=== PATIENT | male | born 1950 | race Caucasian/White ===

== ENCOUNTER → 2023-10-10 09:27 | Outpatient (REF) | payer MEDICARE, BC, SELFPAY ==
[2023-10-10 11:52] LABS: % Basophils 0.5 % (0-2); % Eosinophils 0.9 % (0-6); % Immature Granulocytes 0.2 % (0-0.5); % Lymphocytes 20.8 % (20.5-51.1); % Monocytes 6.6 % (1.7-9.3); Absolute Eosinophils 0.1 10^3/uL (0-0.7); Absolute Lymphocytes 1.7 10^3/uL (1.2-3.4); Absolute Monocytes 0.5 10^3/uL (0.1-0.6); Absolute Neutrophils 5.7 10^3/uL (1.4-6.5); Hematocrit 40.3 % (39.0-52.0); Hemoglobin 13.4 g/dL (13.0-18.0); Mean Corp Hgb Conc. 33.3 g/dL (33.0-37.0); Mean Corpuscular Hgb 29.5 pg (27.0-31.0); Mean Corpuscular Volume 88.8 fL (80.0-94.0); Mean Platelet Volume 12.4 fL (7.4-10.4); Nucleated Red Blood Cells % 0 % (-); Platelet Count 185 10^3/uL (130-400); Red Blood Cell Count 4.54 10^6/uL (4.70-6.10); White Blood Cell Count 8.1 10^3/uL (4.8-10.8)
[2023-10-10 12:18] LABS: ALT (SGPT) 22 U/L (0-50); AST (SGOT) 23 U/L (17-59); Alkaline Phosphatase 88 U/L (38-126); Blood Urea Nitrogen 13 mg/dl (9-20); Calcium 9.4 mg/dl (8.4-10.2); Carbon Dioxide 28 mmol/L (22-30); Chloride 101 mmol/L (98-107); Glucose 96 mg/dl (70-99); HDL Cholesterol 36 mg/dl; LDL Cholesterol, Calculated 65 mg/dl; Potassium 4.4 mmol/L (3.5-5.1); Sodium 137 mmol/L (135-145); Total Bilirubin 0.5 mg/dl (0.2-1.3); Total Cholesterol 124 mg/dl (50-199); Total Protein 6.8 g/dl (6.3-8.2); Triglyceride 116 mg/dl (10-149); Very Low Density Lipoprotein 23 mg/dl (0-30); eGFR > 60.00
[2023-10-10 12:36] LABS: TSH 1.09 uIU/ml (0.47-4.68)
== END ==
LOC: HWLAB 09:27
PROVIDERS: ATTENDING PHYSICIAN Internal Medicine
DX: E78.2 Mixed hyperlipidemia (principal); I10 Essential (primary) hypertension; R19.5 Other fecal abnormalities; N32.81 Overactive bladder; R53.82 Chronic fatigue, unspecified
CPT/HCPCS: 36415; 80053; 80061; 84443; 85025

== ENCOUNTER 2024-03-24 21:14 | Inpatient (IN) | payer MEDICARE, BC, SELFPAY ==
[2024-03-24] VITALS (10 sets, daily range): BP systolic 133–175; BP diastolic 66–79; BMI 26.8; BMI 26.6
--- NOTE | 2024-03-24 17:41 | ED.PDOC.TRB ---
ED Provider Triage
-
Patient seen by provider in Triage?: Seen in Triage
A medical screening examination has been initiated by a qualified medical provider. Based on the assessment performed at this time, it has been determined that an emergent medical condition may exist and the patient has been informed that further
medical evaluation and possible additional diagnostic testing may be needed.
HPI: This is a medical evaluation conducted in person to initiate diagnostic evaluation and provide initial therapeutics. Please see further documentation by the treating clinician.
GENERAL: Alert ,tearful
EYE: No visual abnormalities.
NECK: Trachea midline
ENT: No visible abnormalities.
LUNGS: No acute respiratory distress
NEUROLOGICAL: Alert and oriented
SKIN: no visible lesions.
MUSCULOSKELETAL: Moving extremities normally
PSYCH: Normal and appropriate interaction.
73-year-old male presenting to the emergency department today after an outpatient nuclear stress test that was abnormal centimeter lesion to the ER for further assessment. Did have some chest pain a few hours ago when he had this test performed.
According to the patient his primary care doctor that ordered the test did contact cardiology here but he is unsure which doctor. No ongoing symptoms at this point. Patient took full dose of aspirin prior to arrival. Initial ER testing ordered.
[2024-03-24 18:14] LABS: INR 1.06; PT 13.8 Sec (11.4-14.6)
[2024-03-24 18:15] LABS: APTT 32.6 Sec (23.4-35.0)
[2024-03-24 18:24] LABS: ALT (SGPT) 24 U/L (0-50); AST (SGOT) 28 U/L (17-59); Albumin 4.6 g/dl (3.5-5.0); Alkaline Phosphatase 106 U/L (38-126); Blood Urea Nitrogen 18 mg/dl (9-20); Calcium 9.5 mg/dl (8.4-10.2); Carbon Dioxide 25 mmol/L (22-30); Chloride 105 mmol/L (98-107); Estimated Creatinine Clearance 67 ml/min; Glucose 99 mg/dl (70-99); Potassium 4.6 mmol/L (3.5-5.1); Sodium 143 mmol/L (135-145); Total Bilirubin 0.6 mg/dl (0.2-1.3); Total Protein 7.5 g/dl (6.3-8.2); eGFR > 60.00
[2024-03-24 18:31] LABS: Troponin I 0.263 ng/ml
[2024-03-24 18:35] LABS: Hematocrit 41.8 % (39.0-52.0); Hemoglobin 14.4 g/dL (13.0-18.0); Mean Corp Hgb Conc. 34.4 g/dL (33.0-37.0); Mean Corpuscular Volume 87.1 fL (80.0-94.0); Mean Platelet Volume 12.3 fL (7.4-10.4); Platelet Count 193 10^3/uL (130-400); Red Cell Dist. Width 13.3 % (11.5-14.5); White Blood Cell Count 16.6 10^3/uL (4.8-10.8)
[2024-03-24 18:36] LABS: % Basophils 0.4 % (0-2); % Eosinophils 0.2 % (0-6); % Immature Granulocytes 0.4 % (0-0.5); % Lymphocytes 7.4 % (20.5-51.1); % Monocytes 4.3 % (1.7-9.3); % Neutrophils 87.3 % (42.2-75.2); Absolute Basophils 0.1 10^3/uL (0-0.2); Absolute Immature Granulocytes 0.1 10^3/uL (0-0.05); Absolute Lymphocytes 1.2 10^3/uL (1.2-3.4); Absolute Monocytes 0.7 10^3/uL (0.1-0.6); Absolute Neutrophils 14.5 10^3/uL (1.4-6.5); Nucleated Red Blood Cells % 0 % (-)
[2024-03-24] MEDS: LOW STRENGTH ASPIRIN 324 MG PO (19:08)
--- NOTE | 2024-03-24 19:38 | ED.GENMED ---
History of Present Illness
General
Chief Complaint: Chest Pain
Source: patient and spouse
Exam Limitations: none
Time Seen by Provider: 03/24/24 18:43
Nursing documentation reviewed up to this point in time: agreed with
History of Present Illness
History of Present Illness:
73-year-old male with a past medical history of hypertension, hyperlipidemia who presents to the emergency room with his family for evaluation of recent chest pains and abnormal stress test as an outpatient today. Patient reports that while doing
yard work over the past few months he has noted occasional chest pains�they typically last for a minute or 2 and resolved with some rest. He disclosed this to his family and ultimately to his primary doctor and was referred to a film tests checker for
evaluation. He saw Dr. Jorge Purvis and today was scheduled for nuclear stress test. Apparently a few minutes after initiation of the test patient became diaphoretic and started having chest discomfort. He was referred to the emergency
room�apparently his film tests checker discussed with Dr. Treviño. Patient is currently chest pain-free says that he feels well and has no symptoms here in the ER. He denies any known cardiac history. He does not take any blood thinners.
Review of Systems
Review of Systems
All Other Systems: ROS reviewed and negative except as documented in HPI and ROS
Constitutional: Denies fever
Respiratory: Denies trouble breathing
Cardiac: Reports chest pain and diaphoresis
ABD/GI: Denies abdominal pain, nausea or vomiting
: Denies flank pain
Musculoskeletal: Denies neck pain or back pain
Neurological: Denies dizzy or headache
Phy Exam
Physical Exam
Physical Exam:
General: Awake, alert, oriented x3; no acute distress
Head: Normocephalic, atraumatic
Eyes: Conjunctiva normal, pupils equal round and reactive to light bilaterally
Throat: Airway intact, handling secretions
Neck: Trachea midline, supple without meningismus
Lungs: Clear to auscultation bilaterally, no wheezing, rales, rhonchi
Heart: Regular rate and rhythm, no murmurs, gallops, or rubs
Abd: Soft, non distended, nontender
Neuro: Cranial nerves grossly intact, speech fluid
Skin: no rash
Extremities: No edema in extremities, equal pulses in all extremities
Scores
Heart Failure Risk
Heart Failure Risk Score: Not Applicable
Heart Score for Chest Pain Patients
STEMI patient?: No
History: Highly Suspicious
ECG: Significant ST-Depression
Age: >/= 65 years
Risk Factors: 1 or 2 Risk Factors
Troponin: >/= 3 x Normal Limit
Heart Score for Chest Pain Patients: 9
Heart Score Risk: 72.7 % MACE over next 6 weeks
Withdrawal Assessment of Alcohol
Withdrawal Assessment Completed?: Not applicable
Course
Orders/Labs/Results
Orders:
Orders
03/24/24 17:40
Electrocardiogram (*1) Stat
Reason for Study: Other
Other Reason for Exam: chest pain
EKG- Treatment ONCE
CR Chest - 2 Views Urgent
Comment:
Reason For Exam: cp
03/24/24 17:52
Complete Blood Count/With Diff Urgent
Comprehensive Metabolic Panel Urgent
PTT Urgent
Prothrombin Time Urgent
Troponin I Urgent
03/24/24 18:47
EKG [Electrocardiogram (*1)] Urgent
Reason for Study: Chest Pain
03/24/24 18:48
EKG- Treatment ONCE
03/24/24 18:57
Aspirin Chewable [Low Strength Aspirin] 324 mg PO NOW STA
03/24/24 19:13
CARDIOLOGY CONSULT Urgent
Consulting Provider: Jaylyn Moncada
Was physician already notified: Yes
Heparin 4,000 units IV NOW STA
Nursing to Place Non Medication Order As Directed
Physician Order: PTT 6 hours after initial start of Heparin infusion
03/24/24 19:15
Heparin 83406 Units/250 ml 25,000 units in 250 ml IV PER PROTOCOL
Weight to be used for heparin protocol in kilograms (kg):: 77.6
Protocol:: Cardiac Tx/Acute Coronary
PTT Goal Range to be used:: PTT 73 to 111 seconds
Order type:: Initial
INITIAL Infusion Dose (UNITS/KG/hr) & then follow protocol:: 12 units/kg/hr
Infusion Dose in UNITS/hr & then follow protocol (UNITS/hr):: 950
INFUSION RATE in mL/hr & then follow protocol (mL/hr):: 9.5
PTT less than or equal to 64 seconds:: Increase rate by 200 units/hr (+ 2 mL/hr)
PTT 64.1 to 72.9 seconds:: Increase rate by 100 units/hr (+ 1 mL/hr)
PTT 73 to 111 seconds:: Target Range. No change in rate.
PTT 111.1 to 130.9 seconds:: Decrease rate by 100 units/hr (- 1 mL/hr)
PTT 131 to 199.9 seconds:: HOLD for 1 hr. Then decrease rate by 200 units/hr (- 2 mL/hr)
PTT greater than or equal to 200 seconds:: HOLD for 2 hrs & Notify Provider. Then decrease by 200 units/hr (-
2 mL/hr)
Lab follow-up:: Each change, PTT q6h until 2 consecutive are therapeutic. Then PTT
daily.
03/24/24 21:00
Troponin I Urgent
Abnormal Lab Results
03/24/24
17:52
WBC 16.6 H 10^3/uL
(4.8-10.8)
MPV 12.3 H fL
(7.4-10.4)
Abs Immat Gran (auto) 0.1 H 10^3/uL
(0-0.05)
Absolute Neuts (auto) 14.5 H 10^3/uL
(1.4-6.5)
Absolute Monos (auto) 0.7 H 10^3/uL
(0.1-0.6)
Neutrophils % 87.3 H %
(42.2-75.2)
Lymphocytes % 7.4 L %
(20.5-51.1)
Troponin I 0.263 H* ng/ml
03/24/24 17:52
03/24/24 17:52
Vital Signs
Initial and Last Documented VS:
Initial Vital Signs
Temp Pulse Resp BP Pulse Ox
37.1 C 75 18 175/75 98
03/24/24 17:34 03/24/24 17:34 03/24/24 17:34 03/24/24 17:34 03/24/24 17:34
Last Documented Vital Signs
Temp Pulse Resp BP Pulse Ox
36.9 C 71 18 143/66 99
03/24/24 18:00 03/24/24 19:05 03/24/24 19:05 03/24/24 19:05 03/24/24 19:05
MDM/Problems Addressed
Differential Diagnosis Includes:
ACS/angina
MDM/Problems Addressed:
73-year-old male presents to the emergency department referred by his film tests checker after an abnormal stress test. Has been having intermittent chest pains for the past few months, currently chest pain-free and asymptomatic. Hypertensive in triage
normalized by my assessment, rest of vitals normal. His EKG is abnormal with anterolateral ST depressions. Will place an IV send labs including CBC and CMP, troponins. Treat with aspirin. Discuss with cardiology.
CBC shows leukocytosis of unclear clinical significance, CMP no clinically significant abnormalities. His initial troponin is elevated at 0.263�will trend. Given aspirin, discussed with cardiology recommended heparin infusion. Will plan for cath
in a.m., n.p.o. at midnight. Case discussed with hospitalist for admission.
Chronic conditions affecting care:
Hypertension, hyperlipidemia-- at higher risk for CAD
*Radiology
Radiology exam reviewed: preliminary read by ED provider (No acute disease) and radiology read reviewed
*Pulse Oximetry
Patient hypoxic: no
*EKG
Interpreted by ED Provider?: Yes
Heart Rate: 73
Rate: normal
Rhythm: sinus
Arona: normal axis
Interval: normal interval
QRS Pattern: normal QRS
Ischemia: ST depression
*Critical Care Note
Total Time (30-74mins, 75-104mins- exclusive of procedures): Not Applicable
Data Reviewed
Source: patient and family
Patient Management
Discussion with other providers: Hospitalist (Discussed with hospitalist) and Gas Regulator Repairer (Discussed with cardiology)
Escalation/DeEscalation of care consider admission/obs:
Admission indicated
ED Attending Note
-
Portions of this chart may have been created with voice recognition software.� Occasional wrong word or��sound alike� substitutions may have occurred due to the inherent limitations of voice recognition software.
Discharge Plan
Departure
Patient Disposition: Admit
Date of Disposition: 03/24/24
Time of Disposition: 19:47
Admit to doctor: Kar
Presentation/result/management discussed w/ accepting MD/DO: Hospitalist
Discharge Problem:
Non-ST elevation WI (NSTEMI)
Prescriptions:
No Action
atorvastatin 20 mg Tablet
20 mg PO HS
amlodipine 5 mg Tablet
5 mg PO DAILY
losartan 100 mg Tablet
100 mg PO DAILY
Theragen Tablet
1 tab PO DAILY
ascorbic acid (vitamin C) [Vitamin C] 500 mg Tablet
500 mg PO DAILY
Referrals:
UNKNOWN - PT DOES,NOT KNOW [Family Provider] -
Interventions
Interventions:
*Risk Screen - Suicide Last Done: 03/24/24 17:34
*Neglect/Abuse Screening Last Done: 03/24/24 17:34
*ED COVID-19 Vaccine History Last Done: 03/24/24 17:34
ED- Cardiac Assessment Last Done: 03/24/24 18:55
Discharge Date and Time
Print Language: KINYARWANDA
[2024-03-24] MEDS: HEPARIN 4000 UNITS IV (19:46)
[2024-03-24] MEDS: HEPARIN 25000 UNITS/250 ML IV (19:46)
--- NOTE | 2024-03-24 19:58 | HPS.HSE ---
Addendum entered and electronically signed by Yaya Lakhani DO 03/24/24 20:44:
Patient seen and examined independently. Agree with findings and plan as set forth by DUSTIN Alvarez.
Patient is a 73y M with PMH significant for HTN and dyslipidemia who presents to ED after abnormal stress test today. Patient reports nearly a year of intermittent substernal chest pain that occurs with exertion. Symptoms would typically
resolve quickly with rest. No significant SOB, diaphoresis, N/V, etc. He states that symptoms have not really increased in severity over the past year - perhaps somewhat more frequent. No symptoms with rest.
Patient reported symptoms to his PCP and was sent for stress testing. This was performed today with immediate discomfort / positive stress test.
Cardiology directed the patient to the ED to be admitted for catheterization in the AM.
NSTEMI / ACS
- Admit for further evaluation and treatment.
- IV heparin overnight.
- Bedrest, follow for any recurrent symptoms.
- ASA, increase statin.
- Cardiology eval for cardic cath in the AM.
Benign Hypertension
- Continue current medications for now.
- Will likely require some adjustments for GDMT prior to discharge.
Leukocytosis
- Unclear etiology. ? stress response.
- Afebrile, non-toxic appearing and no focal symptoms suggestive of infection.
- Observe off of abx.
- Follow for changes, development of fever, etc.
DVT Prophylaxis: On IV Heparin
Code Status: Full
Original Note:
Family Physician
-
Family Physician: NOT KNOW UNKNOWN - PT DOES
Chief Complaint
-
chest pain
History of Present Illness
73 year old with PMH for HTN, HLD presented to us with intermittent chest pain for months. patient stated non radiating mid sternum which is worse with exertion, relieved with rest. denied any sob. patient underwent nuclear stress test. he was noted
to have diaphoretic and chest pain. at present denied chest pain. denied KOEHLER, dizzy or syncopal episode. denied fever, chills. denied abdominal pain,n,v,d. denied dysuria or hematuria.
noted elevated trop in ER. initiated on heparin drip. admitting for further management.
Medical History
Past Medical History
Past Medical History: Reports Other
Additional Past Medical History:
HTN
HLD
BPH
Past Surgical History: Reports Other
Additional Past Surgical History:
tonsillectomy
Social History
Tobacco: Non-smoker
Alcohol: Occasional
Drug: None
Family History
Family History: Not pertinent
Allergies / Home Medications
Allergies reflects when Allergies were last updated in [employer].
Home Medications with original date entered in [employer]
Allergy/Medication List:
Allergies
Allergy/AdvReac Type Severity Reaction Status Date / Time
pollen extracts Allergy nasal Verified 03/24/24 19:03
congestion
Home Medications
amlodipine 5 mg tablet 5 mg PO DAILY 03/24/24
ascorbic acid (vitamin C) 500 mg tablet (Vitamin C) 500 mg PO DAILY 03/24/24
atorvastatin 20 mg tablet 20 mg PO HS 03/24/24
losartan 100 mg tablet 100 mg PO DAILY 03/24/24
therapeutic multivitamin 1 tab PO DAILY 03/24/24
Review of Systems
-
Constitutional: Reports No Symptoms
EENT: Reports No Symptoms
Respiratory: Reports No Symptoms
Cardiac: Reports Chest Pain
Abdomen/GI: Reports No Symptoms
: Reports No Symptoms
Musculoskeletal: Reports No Symptoms
Skin: Reports No Symptoms
Neurological: Reports No Symptoms
Endocrine: Reports No Symptoms
Hematologic/Lymphatic: Reports No Symptoms
Psych: Reports No Symptoms
Physical Exam
Vital Signs
Vital Signs
Temp Pulse Resp BP Pulse Ox
98.5 F 71 18 143/66 99
03/24/24 18:00 03/24/24 19:05 03/24/24 19:05 03/24/24 19:05 03/24/24 19:05
Physical Exam
General: Well Developed, Well Nourished and No Apparent Distress
HEENT: NormoCephalic, Moist mucous membranes and Atraumatic
Respiratory: Clear
Cardiac: S1/S2 and Regular Rhythm; No Murmur or Rub
GI: Soft, Non Tender, Non Distended and Normal Bowel Sounds; No Organomegaly
Rectal: Deferred by Provider
Musculoskeletal: No Clubbing, No Cyanosis and No Edema
Skin: No Rash
Neuro: AO x 3 and Nonfocal/grossly intact
Psych: Calm
Laboratory Results
-
03/24/24 17:52
03/24/24 17:52
Laboratory Results
PT 13.8 Sec (11.4-14.6) 03/24/24 17:52
INR 1.06 03/24/24 17:52
APTT Cancelled 03/24/24 19:13
Total Bilirubin 0.6 mg/dl (0.2-1.3) 03/24/24 17:52
AST 28 U/L (17-59) 03/24/24 17:52
ALT 24 U/L (0-50) 03/24/24 17:52
Alkaline Phosphatase 106 U/L (38-126) 03/24/24 17:52
Troponin I 0.263 ng/ml H* 03/24/24 17:52
Data Reviewed
-
Diagnostic Radiology: Report Reviewed by me
Lab Data: Labs Reviewed by me
Impression/Plan
-
#unstable angina/NSTEMI
-TRop 0.263, continue to trend trop
-EKG with ST depression
-for cardiac cath tomorrow
-keep patient NPO after MN
-asa continued
-IV heparin
-cardiology consulted
#leukocytosis likely stress reaction
-wbc 16.6
-patient is afebrile
-obtain UA
#essential htn
-BP stable
-Norvasc,losartan continued with hold parameter
#HLD
-statin continued
#DVT prophylaxis
-heparin
#CODE status
-full code
[2024-03-24] MEDS: LIPITOR 20 MG PO (22:31)
[2024-03-24 22:51] LABS: Urine Albumin Trace (Neg - Trace); Urine Bilirubin Negative (Negative); Urine Character Clear (Clear); Urine Color Yellow; Urine Glucose Negative (Negative); Urine Ketone Trace (Negative); Urine Leukocyte Negative (Negative); Urine Nitrite Negative (Negative); Urine Occult Blood Negative (Negative); Urine Specific Gravity 1.015 (<1.030); Urine Urobilinogen Negative (Neg - 1+)
--- NOTE | 2024-03-24 23:29 | PTCARENOTE ---
Pt admitted to room 2252. AAOx3 VSS, denies CP or any other discomfort. Pt ambulating in the room independently. Pt oriented to room, safety measures in place.
[2024-03-25] VITALS (16 sets, daily range): BP systolic 109–166; BP diastolic 52–81; BMI 26.8
[2024-03-25] MEDS: LIPITOR 60 MG PO (00:15)
[2024-03-25] MEDS: LOPRESSOR 12.5 MG PO ×3 (00:15→21:29)
[2024-03-25 01:45] LABS: APTT 122.8 Sec (23.4-35.0)
[2024-03-25 03:51] LABS: Hematocrit 37.2 % (39.0-52.0); Hemoglobin 12.9 g/dL (13.0-18.0); Mean Corp Hgb Conc. 34.7 g/dL (33.0-37.0); Mean Corpuscular Hgb 29.7 pg (27.0-31.0); Mean Corpuscular Volume 85.5 fL (80.0-94.0); Mean Platelet Volume 12.6 fL (7.4-10.4); Platelet Count 184 10^3/uL (130-400); Red Blood Cell Count 4.35 10^6/uL (4.70-6.10); Red Cell Dist. Width 13.3 % (11.5-14.5); White Blood Cell Count 10.3 10^3/uL (4.8-10.8)
[2024-03-25 04:17] LABS: Blood Urea Nitrogen 17 mg/dl (9-20); Calcium 9.1 mg/dl (8.4-10.2); Carbon Dioxide 25 mmol/L (22-30); Chloride 108 mmol/L (98-107); Estimated Creatinine Clearance 73 ml/min; Glucose 80 mg/dl (70-99); HDL Cholesterol 39 mg/dl; LDL Cholesterol, Calculated 71 mg/dl; Potassium 4.3 mmol/L (3.5-5.1); Sodium 142 mmol/L (135-145); Total Cholesterol 122 mg/dl (50-199); Triglyceride 61 mg/dl (10-149); Very Low Density Lipoprotein 12 mg/dl (0-30); eGFR > 60.00
--- NOTE | 2024-03-25 07:54 | CON.CAR ---
Consultation
Consultation Request
Date/Time Consultation Requested:
Date/Time Consultation Performed: 03/25/24
Requesting Provider: Dr Lakhani
Performing Provider: Dr real (OP Dr Purvis)
Reason for Consultation: abnormal stress
Medical History
-
Chief Complaint: abnormal stress
History of Present Illness:
73 yo with history of HTN and HLD has been having intermittent exertional chest pain and pressure the last year. The pattern has increased in frequency over the last several months. He notes that just with walking his dog, and on some nights when
he gets up to go to the restroom. However he reports that it is not consistent with every time he exerts himself. He has never had any chest pain at rest. Yesterday, he underwent Lexiscan nuclear testing with a a high risk results 03/24/24. Per
report, he had [address] depressions and [address] elevations in aVR and V1 with effusion, he also reports he had significant severe chest pain with infusion. Post stress test EKG changes persisted but chest pain never returned.
Since reversal no further chest pain. Troponin had a rise 4.29 and fall to 3.5.
Past Medical History
Past Medical History: HTN and Hypercholesterolemia
Social History
Tobacco: Non-Smoker
Alcohol: Occasional (Once or twice a month a beer with a burger BBQ)
Drug: Narcotics
Family History
Family History: CAD (His mother suddenly at 63 years old his father also at 61 years old for unclear reasons. His sister has CAD but does not sound premature)
Allergies / Home Medications
Allergy/AdvReac Type Severity Reaction Status Date / Time
pollen extracts Allergy nasal Verified 03/24/24 19:03
congestion
�Medication �Instructions �Recorded �Confirmed �Type
amlodipine 5 mg tablet 5 mg PO DAILY Blood Pressure 03/24/24 03/24/24 History
ascorbic acid (vitamin C) 500 mg 500 mg PO DAILY Supplement 03/24/24 03/24/24 History
tablet (Vitamin C)
atorvastatin 20 mg tablet 20 mg PO HS High Cholesterol 03/24/24 03/24/24 History
losartan 100 mg tablet 100 mg PO DAILY Blood Pressure 03/24/24 03/24/24 History
therapeutic multivitamin 1 tab PO DAILY Supplement 03/24/24 03/24/24 History
Review of Systems
-
All other systems: Negative unless noted
Physical Exam
Vital Signs
Temp Pulse Resp BP Pulse Ox
98 F 58 20 138/65 98
03/25/24 07:34 03/25/24 06:30 03/25/24 07:34 03/25/24 03:51 03/25/24 07:34
Lab Results
03/25/24 03:40
03/25/24 03:40
Troponin I 3.500 ng/ml H* 03/25/24 06:14
Physical Exam
General: Well Developed, Well Nourished, No Apparent Distress and Comfortable
HEENT: Normocephalic
Cardiac: S1/S2, Regular Rhythm, Irregular Rhythm, Murmur (None), Rub (None) and Peripheral Edema (None)
GI: Soft and Non Tender
Genito-urinary: No Costovertebral Tender
Musculoskeletal: No Clubbing, No Cyanosis and No Edema
Neuro: AO x 3
Impression / Plan
-
Non-STEMI: Currently chest pain-free, peak troponin 4.2
Continue aspirin and heparin with intensive monitoring of his PTT, given he has been chest pain-free and aVR elevation raising my concern for left main disease, I did not give ticagrelor or clopidogrel.
Continue beta-facundo and losartan.
Continue high intensity statin, check lipid panel.
Will check hemoglobin A1c
Echo today
Hypertension: Home regimen amlodipine and losartan. Will add beta-facundo, continue losartan, hold off on amlodipine to allow for a OMT.
Hyperlipidemia: Intensifying statin in the setting of non-STEMI
Data Reviewed
-
EKG: Tracing Personally Visualized and interpreted (EKG is serially done, shows sinus rhythm with mild elevation in aVR and ST depressions anterolaterally in the first [address] depressions are more significant and gradually improved but do persist
until this morning's EKG, by this morning's EKG AVR elevation is no longer seen.)
Medical Tests (Nuc Med, Echo etc): Discussed with Physician (Dr. Treviño discussed stress test findings with me)
[2024-03-25] MEDS: LIPITOR 80 MG PO (08:33)
[2024-03-25] MEDS: COZAAR 100 MG PO (08:34)
[2024-03-25] MEDS: LOW STRENGTH ASPIRIN 81 MG PO (08:35)
[2024-03-25 09:04] LABS: Glycohemoglobin (HgbA1c) 5.7 % (4.0-5.6)
[2024-03-25 09:12] LABS: APTT 81.2 Sec (23.4-35.0)
--- NOTE | 2024-03-25 11:23 | CM ---
Addendum entered by Sonam Cabrera 03/25/24 16:43:
Met with and Mrs. Avila and his son to review pre-op and post-op routines. We briefly reviewed the shower instructions. We reviewed restrictions including sternal precautions and driving restrictions. We discussed a home visit by the
Cardiothoracic Transitional Care Nurse. He is agreeable to a home visit. Gave him the Cardiothoracic Surgery Educational Booklet. His spouse states she will be home to assist in his care if needed. Medical work-up in progress. The discharge plan
is to return home with his spouse and a home visit by the Cardiothoracic Transitional Care Nurse. The plan is for CABG on Friday03/26/24.
Original Note:
Reviewed chart. Met with Mr. Avila to review discharge plans. He states prior to admission he resides with his spouse in a one story home with a basement. He state he has eight steps to get to the basement. He states prior to admission he was
independent with ambulation and adls. He states he does not have any DME in the home. He states he has a prescription plan and uses [facility]. Medical work-up in progress. The discharge plan is to return home with his spouse when
medically stable.
--- NOTE | 2024-03-25 12:59 | ITS.CL.CATH ---
[facility] - Catheterization
Cardiac Catheterization
Procedure Report:
CARDIAC CATHETERIZATION REPORT
Date of Procedure: 03/25/2024
Referring: Jorge Purvis DO
Indication: Non-STEMI with markedly abnormal stress test
�
HEMODYNAMIC DATA
AO: 131/68
LV: 131/17
�
LEFT VENTRICULOGRAPHY: Normal left ventricular wall motion with EF 64%
�
CORONARY ANGIOGRAPHY
Dominance: Right
Left Main: 70% distal stenosis
LAD: 50% ostial stenosis. There is a focal 90% stenosis in the mid LAD distal to the takeoff of the small D1 and proximal to the origin of the larger D2. The remainder of the LAD has mild luminal irregularities.
Circumflex: The circumflex is occluded at its origin. There are collaterals from the conus branch and the terminal R AVG to supply 1 small and 1 large obtuse marginal branch of the circumflex.
RCA: Moderate calcification with diffuse mild disease of the proximal, mid, and distal RCA. The RPDA has diffuse disease with focal 70% mid to distal stenosis. RPL 1 and RPL 2 are small. RPL 3 is large with mild luminal irregularities.
�
Closure Device: None-the procedure was performed via the right radial artery. The Seth's test was normal prior to the procedure.
�
Radiation (mGy): 261
DAP (cm2.Gy): 25
Fluoroscopy time: 1.9 minutes
�
CONCLUSIONS
1:�Normal left ventricular function with EF 64%
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
3. Inpatient CABG recommended
�
�
Copy to: Jorge Purvis DO, Fredis Andrade MD ([address] [facility] [address], [place], [place])
�
Alfredo Treviño MD, [facility], [facility]
[2024-03-25] MEDS: NSS 1000 IV (13:00)
--- NOTE | 2024-03-25 13:16 | CONSULT.CT ---
Consultation
-
Date/Time Consultation Requested: 03/25
Date/Time Consultation Performed: 03/25
Requesting Provider: DR Treviño
Performing Provider: Leann Herrmann for Amauri Smith
Reason for Consultation: CABG evaluation
Patient History
Physicians
Outpatient Shot Blast Equipment Operator: Jorge Purvis
Inpatient Shot Blast Equipment Operator: [facility] Cardiology
History of Present Illness
73 yo male with history of HTN and HLD, endorses intermittent exertional mid sternal chest pressure this past year. Denies rest pain. On 03/24 patient underwent Lexiscan nuclear stress test with noted [address] depressions [address]
elevations in aVR and V1. Post stress test EKG changes persisted but chest pain never returned. Patient instructed to go to the emergency room for further evaluation. Troponin had a rise 3.9>4.29>3.5 c/w NSTEMI. IV Heparin was initiated and
patient underwent left heart cath today which reported left main/triple vessel disease. Currently pain free.
Denies CVA/TIA, dysphagia, asthma/COPD, hepatitis, GERD, kidney stones/BPH, varicose veins, cancer
LHC 03/25/24 (R radial-Dr. Treviño):
Left Main: 70% distal stenosis
LAD: 50% ostial stenosis. There is a focal 90% stenosis in the mid LAD distal to the takeoff of the small D1 and proximal to the origin of the larger D2. The remainder of the LAD has mild luminal irregularities.
Circumflex: Occluded at its origin. There are collaterals from the conus branch and the terminal R AVG to supply 1 small and 1 large obtuse marginal branch of the circumflex.
RCA: Moderate calcification with diffuse mild disease of the proximal, mid, and distal RCA. The RPDA has diffuse disease with focal 70% mid to distal stenosis. RPL 1 and RPL 2 are small. RPL 3 is large with mild luminal irregularities.
TTE 03/25:
EF 60-65%. Normal RV size and function. Mild MR. Trace AI/TR
Past Medical History
Past Medical History: HTN and Hypercholesterolemia
Past Surgical History
Past Surgical History: Tonsilectomy
Family History
Mother: at Age (63-sudden )
Father: at Age (61)
Social History
Alcohol: Occasional
Drug: None
Tobacco: Non-Smoker
Personal:
Living: With Spouse
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
Allergies
Allergy/AdvReac Type Severity Reaction Status Date / Time
pollen extracts Allergy nasal Verified 03/24/24 19:03
congestion
Home Medications
�Medication �Instructions �Recorded �Confirmed �Type
amlodipine 5 mg tablet 5 mg PO DAILY Blood Pressure 03/24/24 03/24/24 History
ascorbic acid (vitamin C) 500 mg 500 mg PO DAILY Supplement 03/24/24 03/24/24 History
tablet (Vitamin C)
atorvastatin 20 mg tablet 20 mg PO HS High Cholesterol 03/24/24 03/24/24 History
losartan 100 mg tablet 100 mg PO DAILY Blood Pressure 03/24/24 03/24/24 History
therapeutic multivitamin 1 tab PO DAILY Supplement 03/24/24 03/24/24 History
Review of Systems
-
History Source: Patient
General: Reports No Symptoms
HEENT: Reports No Symptoms
Respiratory: Reports No Symptoms
Cardiac: Reports Chest Pain (exertional)
Abdomen/GI: Reports No Symptoms
: Reports No Symptoms
Musculoskeletal: Reports No Symptoms
Skin: Reports No Symptoms
Neurological: Reports No Symptoms
Vascular: Reports No Symptoms
Physical Exam
Vital Signs
Temp 98.4 F 03/25/24 11:51
Temp route: Oral 03/25/24 11:51
Pulse 57 03/25/24 13:00
Rhythm: Normal sinus rhythm 03/25/24 08:38
Resp Rate 20 03/25/24 11:51
Blood pressure 128/65 03/25/24 13:00
Blood pressure extremity used: Right upper arm 03/25/24 11:51
Position: Lying 03/25/24 11:51
MAP (cuff-Purvi Monitor) 83 03/25/24 13:00
SaO2 97 03/25/24 13:04
Oxygen Mode of Delivery Room air 03/25/24 13:04
Acceptable pain level during hospitalization? 1 03/24/24 17:34
Can the patient verbally communicate their pain? Yes 03/25/24 08:38
Pain scale ratin 03/24/24 22:13
Actual Weight 75.2 kg 03/25/24 06:00
Body Mass Index (BMI) 26.8 03/25/24 06:00
Labs
03/25/24 03:40
03/25/24 03:40
PT 13.8 Sec (11.4-14.6) 03/24/24 17:52
APTT 81.2 Sec (23.4-35.0) H 03/25/24 08:50
Hemoglobin A1c Cancelled 03/24/24 21:55
Troponin I 3.500 ng/ml H* 03/25/24 06:14
Urinalysis
Urine Color Yellow 03/24/24 20:18
Urine Clarity Clear (Clear) 03/24/24 20:18
Urine pH 6.0 (5.0-9.0) 03/24/24 20:18
Ur Specific [place] 1.015 (<1.030) 03/24/24 20:18
Urine Ketones Trace (Negative) A 03/24/24 20:18
Ur Occult Blood Reflex Negative (Negative) 03/24/24 20:18
Urine Bilirubin Negative (Negative) 03/24/24 20:18
Leukocyte Esterase Rfl Negative (Negative) 03/24/24 20:18
Urine Glucose Negative (Negative) 03/24/24 20:18
Urine Albumin (Reflex) Trace (Neg - Trace) 03/24/24 20:18
Exam
General: Well Developed, Well Nourished and No Apparent Distress
HEENT: Normocephalic, Anicteric, Moist Mucous Membranes and PERRLA
Neck: Trachea Midline
Respiratory: Clear
Cardiac: S1/S2 and Regular Rhythm
GI: Soft, Non Tender, Non Distended and Normal Bowel Sounds
Rectal: Deferred by Provider
Skin: Warm and Dry
Neuro: AO x 3, No Motor Deficits and Nonfocal/Grossly Intact
Extremities: Pulses (+2/4 DP pulses B/L)
Lymph: No Lymphadenopathy
Psych: Calm
Assessment / Plan
-
73-year-old male with NSTEMI/3VCAD including left main and preserved EF
- surgeon reviewed films and discuss procedure, risk/benefit, and expected recovery trajectory
- pre-op diagnostics ordered
- CABG for 03/26
- pre-op orders entered
Data Reviewed
-
EKG: Report Reviewed by me and Discussed with Physician
Facility Maintenance Helper: Report Reviewed by me and Discussed with Physician
Echo: Report Reviewed by me and Discussed with Physician
Radiology: Report Reviewed by me and Discussed with Physician
Medical Tests (Nuc Med, etc): Report Reviewed by me and Discussed with Physician
Labs: Labs Reviewed by me and Discussed with Physician
--- NOTE | 2024-03-25 14:56 | W.PN.HOSP.TC ---
Today's Communication/Plan
-
asa, statin
BB, ARB
Anticipate CABG planning
Assessment / Plan
Assessment / Plan
Physical Exam
General: Well Developed, Well Nourished and No Apparent Distress
HEENT: NormoCephalic, Moist mucous membranes and Atraumatic
Respiratory: Clear
Cardiac: S1/S2 and Regular Rhythm; No Murmur or Rub
GI: Soft, Non Tender, Non Distended and Normal Bowel Sounds; No Organomegaly
Rectal: Deferred by Provider
Musculoskeletal: No Clubbing, No Cyanosis and No Edema
Skin: No Rash
Neuro: AO x 3 and Nonfocal/grossly intact
Psych: Calm
#unstable angina/NSTEMI
-TRop 0.263, continue to trend trop
-EKG with ST depression
-ASA, Hep ggt
-Cath today- triple vessel disease - suggest inpatient CABG
-BB, ARB
-Statin, lipid panel
-hgba1c
-F/u ECHO
-Cards on board
#HTN
#Hyperlipidemia
-losartan, beta-facundo
� Hold on amlodipine to allow for GDMT
�Statin
#leukocytosis likely stress reaction
-wbc 16.6
-patient is afebrile
�Resolved
#HLD
-statin continued
#DVT prophylaxis
-heparin
#CODE status
-full code
Total time spent on today's encounter was 50 minutes which included time spent in counseling the patient/family regarding diagnosis and treatment plan as listed above, goals of care, and symptom management. Case was discussed with nursing staff,
specialists, and care coordinators/case management. All labs and imaging personally reviewed by me. Remainder the time spent in detailed review of previous records, lab data, imaging, and other medical provider documentation.
Anticipated Discharge: > 48 hours
Subjective/Interval History
-
Date of Service: March 25, 2024
No active chest pain, plan for cardiac cath
Objective Data
-
Labs:
Laboratory Results
03/25/24 03/25/24 03/25/24
03:40 08:50 15:00
WBC 10.3
Hgb 12.9 L
Hct 37.2 L
Plt Count 184
APTT 81.2 H Cancelled
Sodium 142
Potassium 4.3
Chloride 108 H
Carbon Dioxide 25
BUN 17
Creatinine 0.8
Glucose 80
Calcium 9.1
Vital Signs:
Vital Signs
Temp Pulse Resp BP Pulse Ox
98.4 F 55 20 141/68 99
03/25/24 11:51 03/25/24 14:15 03/25/24 11:51 03/25/24 14:00 03/25/24 14:15
I&O
03/24/24 03/25/24 03/26/24
06:59 06:59 06:59
Intake Total 85 / 85
Balance 85 / 85
Review of Systems
-
History Source: Patient
All other systems: Not reviewed unless documented
Data Reviewed
-
Diagnostic Radiology: Image personally visualized and interpreted and Report Reviewed by me
Medical Tests (Nuc Med, Echo etc): Report Reviewed by me
Labs: Labs Reviewed by me
--- NOTE | 2024-03-25 15:33 | CARDSERVLU ---
Echocardiogram with Lumason completed after protocol screening completed. Allergies verified.
Patent IV site: right arm accessory cephalic _site clear____
IV site flushed with 0.9% NaCl pre and post administration.
Diluted bolus method utilized to enhance visualization of ventricular mendes.
Total volume given: __4__ mL
Patient tolerated all procedures well without complications.
--- NOTE | 2024-03-25 15:54 | W.PN.UPDATE ---
Update Note
Progress Note Update
Very pleasant 73 y/o male with recent markedly positive stress test
Noted positive trops as well
Pt c/o exertional angina
cath with severe lad/om disease, preserved EF, rca with luminal irregularities and distal disease
I agree he is a candidate for cabg on this admission to lad/om and ?distal pda
Long discussion with pt and family regarding the findings and the recommendation for cabg
Risks, complications, benefits and alternatives reviewed. Risks not limited to mortality, bleeding, infection, organ damage
Pt and family appear to understand and wish to proceed
Cabg in am.
--- NOTE | 2024-03-25 17:51 | W.PN.UPDATE ---
Update Note
Progress Note Update
STS RISK SCORE
Procedure Type:�Isolated CABG
PERIOPERATIVE OUTCOME ESTIMATE %
Operative Mortality 1.11%
Morbidity & Mortality 5.13%
Stroke 1.06%
Renal Failure 0.842%
Reoperation 2.09%
Prolonged Ventilation 2.53%
Deep Sternal Wound Infection 0.101%
Long Hospital Stay (>14 days) 2.67%
Short Hospital Stay (<6 days)* 55.6%
Clinical Summary
Planned Surgery: Isolated CABG, Urgent, First cardiovascular surgery
Demographics: 73 year old, White, male, 75.2kg, 168cm, BMI: 26.6 kg/m�
Lab Values: Creatinine: 0.8 mg/dL, Hematocrit: 37.2%, WBC Count: 10.3 10�/�L, Platelet Count: 959834 cells/�L
PreOp Medications: FREDIS Inhibitors/ARBs <=48 hrs
Substance Abuse: Never smoker, Alcohol use: 2-7 drinks/week
Risk Factors / Comorbidities: Hypertension
Cardiac Status: NYHA Class II, Ejection Fraction = 63%
Coronary Artery Disease: 3 vessels diseased, Left Main Stenosis >=50%, Stable Angina, ND: 1 to 7 Days
Valve Disease: Trivial/Trace AR, Mild MR, Trivial/Trace TR
[2024-03-25] MEDS: HEPARIN 25000 UNITS/250 ML IV (18:02)
--- NOTE | 2024-03-25 18:36 | PTCARENOTE ---
Pt had cardiac cath done via right radial artery, radial band removed per protocol without problem. Pt seen by . Carotid U/S and ECHO done at bedside. Sternal precautions and incentive spirometry instruction taught to pt. Pt denies any
discomfort. Telemetry shows sinus rhythm. Plan for transfer to [facility] for pre op prep. Pt and family aware of plans.
[2024-03-26] VITALS (33 sets, daily range): BP systolic 92–158; BP diastolic 44–107; BMI 26.7
[2024-03-26 01:05] LABS: Hematocrit 35.9 % (39.0-52.0); Hemoglobin 12.5 g/dL (13.0-18.0); Mean Corp Hgb Conc. 34.8 g/dL (33.0-37.0); Mean Corpuscular Hgb 30.2 pg (27.0-31.0); Mean Corpuscular Volume 86.7 fL (80.0-94.0); Platelet Count 166 10^3/uL (130-400); Red Blood Cell Count 4.14 10^6/uL (4.70-6.10); Red Cell Dist. Width 13.4 % (11.5-14.5); White Blood Cell Count 10.5 10^3/uL (4.8-10.8)
[2024-03-26 01:12] LABS: APTT 49.2 Sec (23.4-35.0)
[2024-03-26 01:27] LABS: Blood Urea Nitrogen 17 mg/dl (9-20); Calcium 8.3 mg/dl (8.4-10.2); Carbon Dioxide 23 mmol/L (22-30); Chloride 109 mmol/L (98-107); Estimated Creatinine Clearance 73 ml/min; Glucose 80 mg/dl (70-99); Sodium 141 mmol/L (135-145); eGFR > 60.00
--- NOTE | 2024-03-26 07:37 | W.CVOR.SURPR ---
CVOR Surgeon Immed Pre Op
-
I have examined this patient prior to performance of the scheduled procedure.
The patient's condition is unchanged from the time of the dictated/written History and
Physical and the patient is able to undergo the scheduled procedure.
--- NOTE | 2024-03-26 08:04 | W.PN.CD ---
Today's Communication / Plan
-
CABG today.
Impression / Plan
-
Impression/Plan: 73 y/o male with HTN, HLD admitted with NSTEMI after high risk stress test, found to have severe, multivessel CAD including in the LMCA.
#Non-STEMI
-Acute.
-Cardiac catheterization revealed multivessel CAD including LMCA.
-CT surgery consulted.
-Patient for CABG today.
-Anticipate routine post operative course.
-Wean vent to extubate.
-Wean pressors/inotropes for MAP > 65, CI > 2.2.
#Hypertension
-Chronic, stable.
-Home regimen amlodipine and losartan.
-Amlodipine discontinued in favor of metoprolol.
-We will adjust medications post operatively.
#Hyperlipidemia
-Chronic.
-Total cholesterol = 122, LDL = 71, HDL = 39, Triglycerides = 61.
-Atorvastatin increased to 80 mg daily.
-Goal LDL < 55.
Subjective/Interval History:
CABG this morning.
DATA:
TTE, 03/24/2024:
CONCLUSIONS
LV ejection fraction is 60-65%. No regional wall motion abnormalities are seen.
Normal right ventricular size and function.
No significant valvular disease.
No prior study available for comparison.
Cardiac Catheterization, 03/25/2024:
CORONARY ANGIOGRAPHY
Dominance: Right
Left Main: 70% distal stenosis
LAD: 50% ostial stenosis. There is a focal 90% stenosis in the mid LAD distal to the takeoff of the small D1 and proximal to the origin of the larger D2. The remainder of the LAD has mild luminal irregularities.
Circumflex: The circumflex is occluded at its origin. There are collaterals from the conus branch and the terminal R AVG to supply 1 small and 1 large obtuse marginal branch of the circumflex.
RCA: Moderate calcification with diffuse mild disease of the proximal, mid, and distal RCA. The RPDA has diffuse disease with focal 70% mid to distal stenosis. RPL 1 and RPL 2 are small. RPL 3 is large with mild luminal irregularities.
Physical Exam
Vital Signs/Labs
Vital Signs
Temp Pulse Resp BP Pulse Ox
36.9 C 60 18 142/107 98
03/25/24 17:11 03/26/24 06:00 03/26/24 06:00 03/26/24 06:00 03/25/24 20:00
03/24/24 03/25/24 03/26/24
11:59 11:59 11:59
Actual Weight 75.2 kg 75.1 kg
03/26/24 00:53
03/26/24 00:53
PT 13.8 Sec (11.4-14.6) 03/24/24 17:52
INR 1.06 03/24/24 17:52
APTT 49.2 Sec (23.4-35.0) H 03/26/24 00:53
Triglycerides 61 mg/dl (10-149) 03/25/24 03:40
LDL Cholesterol, Calc 71 mg/dl 03/25/24 03:40
VLDL Cholesterol, Calc 12 mg/dl (0-30) 03/25/24 03:40
HDL Cholesterol 39 mg/dl 03/25/24 03:40
LAB Results
03/24/24 03/24/24 03/25/24
17:52 20:59 01:08
Troponin I 0.263 H* 2.290 H* D 3.930 H* D
03/25/24 03/25/24
03:40 06:14
Troponin I 4.290 H* 3.500 H*
Physical Exam
Exam deferred at Dr. Smith's request (operating).
Data Reviewed
-
Date of Service: March 26, 2024
Medical Decision Making: Reviewed Test Results, Test Interpretation and Review of Case with other Provider
EKG: Tracing Personally Visualized and interpreted and Report Reviewed by me
Echo: Tracing Personally Visualized and interpreted and Report Reviewed by me
X-Ray/CT/US/MRI/NUC/PET: Image Personally Visualized and interpreted and Report Reviewed by me
Medical Tests (PFT, Pathology etc): Image Personally Visualized and interpreted and Report Reviewed by me
Labs: Labs Reviewed by me
--- NOTE | 2024-03-26 08:38 | CHAP ---
Voicemail received from Mr. Avila's son this morning at 8am requesting pre-op prayers, but Fredis had been taken back to the OR by 8:15 when I went up. Will follow after.
[2024-03-26 08:49] LABS: Glycohemoglobin (HgbA1c) 5.7 % (4.0-5.6)
[2024-03-26 08:56] LABS: Urine Albumin Negative (Neg - Trace); Urine Bilirubin Negative (Negative); Urine Character Clear (Clear); Urine Color Yellow; Urine Glucose Negative (Negative); Urine Ketone Negative (Negative); Urine Leukocyte Trace (Negative); Urine Nitrite Negative (Negative); Urine Occult Blood 4+ (Negative); Urine Urobilinogen Negative (Neg - 1+)
[2024-03-26 09:01] LABS: Urine Red Blood Cell 40-50 /HPF (0-2); Urine Squamous Cell 0-2 /LPF (Few); Urine White Cell 0-2 /HPF (0-5)
[2024-03-26 09:02] LABS: ACT+ - POC 96 Seconds (82-134)
[2024-03-26 09:02] LABS: Urine Bacteria Few (Negative)
--- NOTE | 2024-03-26 09:38 | CM ---
Patient in OR today for CABG.
Pt. resides with spouse in a private home. He is functionally indep. at baseline w/ ADLs, mobility without the use of any assisted device.
Antic. DC plan is for home w/ CT Transitional Care RN.
CM to follow.
[2024-03-26 11:00] LABS: ACT+ - POC 468 Seconds (82-134)
[2024-03-26 11:58] LABS: B.E. - POC -1.8 mmol/L; Glucose - POC 82 mg/dl (70-99); HCO3 - POC 22 mmol/L (21-29); Hematocrit - POC 34 % PCV (42-52); Hemodilution- POC No; Hemoglobin Calculated - POC 11.7; Ionized Calcium - POC 1.12 mmol/L (1.12-1.27); PCO2 - POC 34 mmHg (35-45); PO2 - POC 501 mmHg (80-100); POC Comment PRE; Potassium - POC 3.4 mmol/L (3.6-5.0); Sodium - POC 141 mmol/L (135-145); pH - POC 7.42 (7.35-7.45)
[2024-03-26 12:00] LABS: ACT+ - POC 112 Seconds (82-134)
--- NOTE | 2024-03-26 12:23 | W.PN.CT.SURG ---
CT Surgery Operative Note
-
Pre-op Diagnosis: nstemi
critical cad
Post-op Diagnosis: Same
Procedure: Cabg x 2
chen- lad
pipe- om
opcb
CRYSTAL ligation #40 clip
RSF
Primary Surgeon: Luis
Assisting Surgeons: DR Lam
Pat Murt
Specimen: None
Cultures: None
Complications / Blood Loss: None
Findings: Petr with preserved EF
Good conduit
Fair targets with diffuse disease
Ascending Aorta with severe plaque, unable to cross clamp
CRYSTAL without clot, complete occlusion with clip
[2024-03-26 12:35] LABS: Glucose - POC 102 mg/dl (70-99); HCO3 - POC 21 mmol/L (21-29); Hematocrit - POC 30 % PCV (42-52); Hemodilution- POC No; Hemoglobin Calculated - POC 10.2; Ionized Calcium - POC 1.06 mmol/L (1.12-1.27); O2 Saturation %Calculated-POC 96.4 5 (92-96); PCO2 - POC 38 mmHg (35-45); PO2 - POC 89 mmHg (80-100); POC Comment POST; Potassium - POC 3.9 mmol/L (3.6-5.0); Sodium - POC 142 mmol/L (135-145); pH - POC 7.35 (7.35-7.45)
[2024-03-26 13:20] LABS: Glucose - Point of Care 106 mg/dl (70-99)
[2024-03-26 13:22] LABS: Hematocrit 33.8 % (39.0-52.0); Hemoglobin 11.7 g/dL (13.0-18.0); Platelet Count 147 10^3/uL (130-400)
[2024-03-26 13:26] LABS: B.E. -2.7 mmol/L; HCO3 21.8 mmol/L (21-28); Ionized Calcium 1.29 mMOL/L (1.15-1.33); O2 Saturation % 98.3 % (94-98); PCO2 36 mmHg (35-48); PO2 109 mmHg (83-108); Potassium 3.7 mMOL/L (3.5-5.1); Sodium 137 mMOL/L (136-145); pH 7.39 (7.35-7.45)
[2024-03-26 13:32] LABS: APTT 32.9 Sec (23.4-35.0); INR 1.24; PT 15.4 Sec (11.4-14.6)
[2024-03-26] MEDS: NSS 500 IV (13:37)
[2024-03-26] MEDS: KCL 50 IV ×2 (13:38→14:43)
[2024-03-26] MEDS: ANCEF 10 IV ×2 (13:40)
[2024-03-26 13:41] LABS: Blood Urea Nitrogen 15 mg/dl (9-20); Estimated Creatinine Clearance 73 ml/min; Glucose 107 mg/dl (70-99); Magnesium 1.9 mg/dl (1.6-2.3)
[2024-03-26] MEDS: TYLENOL PO (13:41)
[2024-03-26] MEDS: LIPITOR PO (13:41)
[2024-03-26] MEDS: LOPRESSOR PO (13:43)
[2024-03-26] MEDS: LOW STRENGTH ASPIRIN PO (13:43)
--- NOTE | 2024-03-26 13:51 | PTCARENOTE ---
Pt received from CVOR at 1300; Sedated and intubated; NSR rhythm on monitor; VSS; Epicardial V-wire present with temporary pacemaker settings 50/10/0.8; +2 DP and radial pulses present; Lungs diminished at bases; ETT size 8 positioned and secured at
23 cm center lip; Ventilator settings SIMV 14/500/5/5 FiO2 60%; CTx3 to -20 cm wall suction draining bloody drainage - no air leak, tidaling, or crepitus noted; Hypoactive BS; Forrester catheter in place draining clear, yellow urine; Sternal Midline
Incision approximated and CDI; A-line in left radial artery, [place] present in right Cordis - all lines zeroed and level; PIVx2 - #18 RAC and #20 L FA; Insulin/precedex infusing - see nursing flowsheets for further details; potassium currently being
repleted; see nursing documentation for further details.
--- NOTE | 2024-03-26 14:03 | CON.INTV ---
Consultation
Consultation Request
Date/Time Consultation Requested: 03/26/2024
Date/Time Consultation Performed: 03/26/2024
Requesting Provider: Dr. Smith
Performing Provider: Dr. Michael Del Valle
Reason for Consultation: Status postcoronary artery bypass
Medical History
-
History of Present Illness:
73-year-old man with past medical history significant for hypertension, dyslipidemia came to the emergency room on 03/24/2024 after an abnormal stress test. Has been complaining of exertional chest pain. Subsequently patient underwent cardiac
catheterization on 03/25/2024 that demonstrated normal LVEF. Severe three-vessel coronary artery disease. Coronary artery bypass recommended
CT surgery evaluated the patient and he was deemed candidate for revascularization
Coronary artery bypass underwent on 03/26/2024 without complications. Patient is currently in the intensive care unit.
Sedated, intubated on mechanical ventilation.
Records reviewed.
Chest tube in place with no excessive drainage and no air leak.
Past Medical History
Past Medical History: Other (See assessment and plan)
Social History
Tobacco: Non-smoker
Alcohol: Occasional
Drug: None
Family History
Family History: Unable to Obtain
Allergies / Home Medications
Allergies
Allergy/AdvReac Type Severity Reaction Status Date / Time
pollen extracts Allergy nasal Verified 03/24/24 19:03
congestion
Home Medications
�Medication �Instructions �Recorded �Confirmed �Last Taken �Type
amlodipine 5 mg tablet 5 mg PO DAILY Blood Pressure 03/24/24 03/24/24 03/24/24 History
ascorbic acid (vitamin C) 500 mg 500 mg PO DAILY Supplement 03/24/24 03/24/24 03/24/24 History
tablet (Vitamin C)
atorvastatin 20 mg tablet 20 mg PO HS High Cholesterol 03/24/24 03/24/24 03/23/24 History
losartan 100 mg tablet 100 mg PO DAILY Blood Pressure 03/24/24 03/24/24 03/24/24 History
therapeutic multivitamin 1 tab PO DAILY Supplement 03/24/24 03/24/24 03/24/24 History
Review of Systems
-
Unable to Obtain full review of systems at this time due to: Acuity and Patient Intubation
Vitals / Labs / Diagnostic Testing
Vital Signs
Temp Pulse Resp BP Pulse Ox
94.7 F L 64 14 112/67 96
03/26/24 13:00 03/26/24 13:32 03/26/24 13:00 03/26/24 13:32 03/26/24 13:32
Lab Data
03/26/24 13:01
Laboratory Results
03/26/24 03/26/24
00:53 13:01
PT 15.4 H
INR 1.24
APTT 49.2 H 32.9
pH 7.39
pCO2 36
pO2 109 H
HCO3 21.8
O2 Delivery Level Not Reportable
Diagnostic Testing:
Physical Exam
-
HEENT: Normocephalic and Other (ET tube in place without secretion)
Cardiovascular: S1/S2
Respiratory: Clear and Non-Labored Respirations
GI: Soft and Non Distended
Neurology: Other (Sedated, mechanical ventilation per)
Skin: Warm
General: Comfortable
Assessment
-
Status post coronary artery bypass 03/26/2024
Postoperative mechanical ventilation
Postoperative anemia
Conditions present prior admission:
Hypertension
Hyperlipidemia
BPH
Assessment and plan:
His doing well postop-currently on mechanical ventilation and appears comfortable.
ABG reviewed: Adequate ventilation and oxygenation
Continue SIMV mode with no change
Spontaneous breathing trial per protocol once sedation wears off.
Anemia noted-no evidence of acute bleeding
Follow H&H serially
Hemodynamics -acceptable off vasopressors
Adequate urinary output
Normal renal function.
Chest tube with no excessive drainage-no air leak.
Chest x-ray reviewed: With no pneumothorax or fluid collections.
Remain nothing by mouth
Head of the bed elevation
Glycemic control per protocol
DVT prophylaxis when safe from the surgical perspective.
Critical care statement: A total of 32 minutes of critical care time was provided for this patient today. This includes management of unstable vital signs, evaluation of the patient at bedside, reviewing the patient's pertinent medical records
including ventilator settings, arterial blood gases, radiographs, microbiology, laboratory evaluations and discussion with primary team, critical care nursing, and respiratory therapy.
[2024-03-26 14:06] LABS: Glucose - Point of Care 107 mg/dl (70-99)
[2024-03-26] MEDS: MAGNESIUM SULFATE 50 IV (14:29)
--- NOTE | 2024-03-26 14:29 | W.PN.UPDATE ---
Update Note
Progress Note Update
73 yo male with history of HTN and HLD, endorses intermittent exertional mid sternal chest pressure this past year. Denies rest pain. On 03/24 patient underwent Lexiscan nuclear stress test with noted [address] depressions and [address]
elevations in aVR and V1. Post stress test EKG changes persisted but chest pain never returned. Patient instructed to go to the emergency room for further evaluation. Troponin had a rise 3.9>4.29>3.5 c/w NSTEMI. IV Heparin was initiated and
patient underwent left heart cath 03/25 which reported left main/triple vessel disease
IV fluids: 1000
U.O.:� 450
Cell Saver: 250
Blood:� none
Wires:� V-wires
Gtts: Insulin, Precedex
�
NEURO: sedated on Precedex, pupils +2mm B/L
RESP: #8OT @23cm> 500/60%/14/5. Lungs clear B/L. 1 mediastinal (30cc on arrival) and R/L pleural (10cc on arrival) chest tubes to -20cm suction. Sanguineous drainage
CV: RRR +S1, S2, no S3, no�rub, no murmur. Dermabond to median sternotomy. RIJ w/[place] intact
ABD: round, soft, no BS
EXT: no edema, +2/4 DP pulses B/L, no femoral bruit, left radial A-line intact
: Forrester with clear yellow urine
�
A/P: POD #0 s/p OPCABG x 2 QUESADA-LAD; MICHELLE (off QUESADA)-OM; LAAE #40mm clip (brief AF intra-op)
DEV: EF�65-70%
- wean and extubate
-will NOT need Amio on DC as AF caused by manual heart manipulation
#CAD/pre-op NSTEMI
- will require ASA/Plavix, statin, beta-facundo
# HTN
- assess need to resume home losartan/amlodipine
�
# acute surgical blood loss anemia-expected
- trend CBC
�
# Hyperglycemia (A1C 5.7)
- insulin infusion x 24h
- may need SSI
�
[2024-03-26 14:58] LABS: Glucose - Point of Care 104 mg/dl (70-99)
[2024-03-26] MEDS: PACERONE PO (15:14)
[2024-03-26] MEDS: NEURONTIN PO (15:14)
[2024-03-26 16:02] LABS: Glucose - Point of Care 107 mg/dl (70-99)
[2024-03-26 17:01] LABS: Glucose - Point of Care 87 mg/dl (70-99)
--- NOTE | 2024-03-26 17:30 | PTCARENOTE ---
RT in room and pt placed on CPAP at 1720. ABG's due at 1750
[2024-03-26 17:42] LABS: Hematocrit 34.6 % (39.0-52.0); Hemoglobin 12.1 g/dL (13.0-18.0); Platelet Count 177 10^3/uL (130-400)
[2024-03-26 17:57] LABS: B.E. -3.2 mmol/L; Ionized Calcium 1.23 mMOL/L (1.15-1.33); O2 Saturation % 98.1 % (94-98); PCO2 39 mmHg (35-48); PO2 110 mmHg (83-108); Sodium 138 mMOL/L (136-145); pH 7.36 (7.35-7.45)
--- NOTE | 2024-03-26 18:13 | PTCARENOTE ---
ABG's reviewed; RT at bedside; Pt extubated at 1810; Pt placed on 6L NC.
[2024-03-26] MEDS: ANCEF 5 IV (18:22)
[2024-03-26] MEDS: LOW STRENGTH ASPIRIN 81 MG PO (18:22)
[2024-03-26 19:04] LABS: Glucose - Point of Care 89 mg/dl (70-99)
[2024-03-26] MEDS: BACTROBAN 2% OINTMENT 1 APPLIC NASAL (19:28)
--- NOTE | 2024-03-26 20:25 | PTCARENOTE ---
Pt's BP elevated at 1850 after turning pt in bed to change absorbent pad underneath pt - MAP's increasing into 90's and 100's; Loud, high-pitched friction rub present during high BP episode; Pt denies any pain at the time but was also anxious
talking about the passing of his first ; Cardene started at 2.5 mcg/hr and CVIA Ed Bandar notified and aware - states to turn off Cardene infusion at 2009; Pt's BP now stable with MAP's in 70's with Cardene infusion still turned off.
[2024-03-26 21:01] LABS: Glucose - Point of Care 85 mg/dl (70-99)
[2024-03-26] MEDS: DILAUDID 0.25 MG IV (21:11)
--- NOTE | 2024-03-26 21:23 | PTCARENOTE ---
Pt having another episode of hypertension at 2100 when woken up by RN during hourly checks - MAP's 90's-100's; Pt anxious and uncomfortable at time; Cardene started and CVPA Ed B. notified - PRN 0.25 mg IV Dilaudid given as ordered; Pt able to come
off Cardene infusion at 2116 with MAP's in 70's; BP remains stable at this time.
[2024-03-26 22:04] LABS: Glucose - Point of Care 104 mg/dl (70-99)
[2024-03-26] MEDS: SENOKOT-S 1 TABLET PO (22:22)
[2024-03-26] MEDS: NEURONTIN 100 MG PO (22:22)
[2024-03-26] MEDS: TYLENOL 1000 MG PO (22:22)
[2024-03-26] MEDS: PACERONE 200 MG PO (22:22)
--- NOTE | 2024-03-26 22:36 | PTCARENOTE ---
Pt's BP high again at 2215; CVPA Ed B. at bedside and states to go by cuff pressure instead of arterial line pressure, and he also states that CVP pressure is inaccurate as it periodically rises to high 20's and lowers back down to low 10's while pt
is lying still multiple times in a row; No Cardene used at this time
[2024-03-26 23:05] LABS: Glucose - Point of Care 98 mg/dl (70-99)
--- NOTE | 2024-03-26 23:07 | W.PN.CT ---
Today's Communication / Plan
-
Plan:
-No major issues overnight. Hemodynamically and neurologically intact
-Successfully extubated yesterday 03/26/24 @ 1810
-Weaned of levophed gtt, remains on insulin gtt per protocol
-U/O since OR 680 mL
-Monitor chest tube output: R/L pleurals 155/260, med 55/110; will likely d/c med and bulb pleurals
-Will insulate temporary v-wire
-D/C'd A-line @ 0530, no swan
-Will d/c yusuf catheter @ 0600
-Will transition to tele phase today once off insulin gtt
-Cont. current meds (ASA, Amiodarone, Lopressor, Lipitor; will add Plavix)
-Encourage use of IS
-Wean off of O2 as tolerated
-OOB into chair/Ambulate
Assessment / Plan
-
Assessment:
-S/p Off-pump Cabg x 2 (chen- lad, pipe- om)/CRYSTAL ligation #40 clip, by Dr. Smith, 03/26/24, pod#1
-Severe multivessel CAD/70% distal LM
-NSTEMI (peak trop 4.29)
-LVEF 65-70% per intraop DEV
-HTN
-HLD
-Prediabetes (A1C 5.7)
-BPH
-S/P Tonsillectomy
-Acute postop blood loss/Anemia (stable, no transfusion required)
-Acute postop atelectasis
-Acute postop hypovolemia with subsequent hypervolemia
Discussed patient care with: Cardiology, Nursing, Respiratory Therapy, Pharmacy and Care Team
Subjective
Procedure
S/p Off-pump Cabg x 2 (chen- lad, pipe- om)/CRYSTAL ligation #40 clip, by Dr. Smith, 03/26/24
-
Date of Service: March 26, 2024
Pt c/o incisional pain, otherwise feels well
Objective Data
-
Lab Results
03/26/24 16:58
03/26/24 13:01
PT 15.4 Sec (11.4-14.6) H 03/26/24 13:01
INR 1.24 03/26/24 13:01
APTT 32.9 Sec (23.4-35.0) 03/26/24 13:01
Vital Signs
Vital Signs
Temp Pulse Resp BP Pulse Ox
100.3 F 79 13 119/63 97
03/26/24 23:00 03/26/24 23:00 03/26/24 23:00 03/26/24 23:00 03/26/24 23:00
CT Intake/Output/Weight
03/26/24 03/26/24 03/27/24
06:59 18:59 06:59
Intake Total 564.5 / 719.2 154.7 / 719.2
Output Total 300 / 700 470 / 790 320 / 790
Balance -300 / 280 94.5 / -70.8 -165.3 / -70.8
SaO2: 97
Physical Exam
-
General: Awake, Oriented and AOx3
Cardiovascular: Regular rate & rhythm, No Murmurs, Rub (likely friction rub from chest tubes) and No Gallop
Respiratory: Decreased Breath Sounds
Sternum: Stable
Incision: Clean, Dry, Intact and Dressing Intact
Extremities: No Edema
Data Reviewed
-
Lab Results: Results Reviewed
Medications: Active Meds Reviewed
Chest X-Ray: Report Reviewed and Image Reviewed
ECG: Report Reviewed and Image Reviewed
[2024-03-27] VITALS (25 sets, daily range): BP systolic 108–155; BP diastolic 52–96; PULSE 69; O2SAT 94–95; BMI 27.5
[2024-03-27 00:20] LABS: Glucose - Point of Care 111 mg/dl (70-99)
--- NOTE | 2024-03-27 01:00 | PTCARENOTE ---
Report from Lasha at both 1900 and 2300. Pt assessed and VS documented. See flowsheet. Pt drowsy but will arouse spontaneously and to voice. Oriented x 4. Speech clear. Pt on 2L/NC. Sats 97%. CDB and IS encouraged. IS peak 750 mls. BBS present.
Decreased to B bases. Pt in SR, 80-70's. Audible heart tones. Pericardial rub present. Ed, PA aware. V wire attached to temporary pacemaker. VVI, rate 50, mA 10, sensitivity 0.8. CVP reading 11-14 mmHG. Chest tubes x 3, all to -20 cm suction. See
flowsheet. For pulse and wound assessments, see flowsheets. Belly soft, nontender. Hypoactive bowel sounds x 4. Forrester present, draining clear, yellow urine. Q 1hr urine and CT outputs recorded.
Of note, A line reading ~15 points greater than cuff pressure-(systolic). Reported to PA. Orders given to follow cuff BP. If SBP > 140, will restart Cardene gtt. Ongoing monitoring and plan of care.
[2024-03-27 01:08] LABS: Glucose - Point of Care 100 mg/dl (70-99)
[2024-03-27] MEDS: ANCEF 5 IV ×2 (02:29→10:30)
[2024-03-27 03:50] LABS: Glucose - Point of Care 101 mg/dl (70-99)
[2024-03-27 03:52] LABS: Ionized Calcium 1.18 mMOL/L (1.15-1.33)
[2024-03-27 04:01] LABS: Hematocrit 35.1 % (39.0-52.0); Hemoglobin 11.8 g/dL (13.0-18.0); Mean Corp Hgb Conc. 33.6 g/dL (33.0-37.0); Mean Corpuscular Hgb 30.1 pg (27.0-31.0); Mean Corpuscular Volume 89.5 fL (80.0-94.0); Mean Platelet Volume 12.8 fL (7.4-10.4); Platelet Count 173 10^3/uL (130-400); Red Blood Cell Count 3.92 10^6/uL (4.70-6.10); Red Cell Dist. Width 13.5 % (11.5-14.5); White Blood Cell Count 22.6 10^3/uL (4.8-10.8)
[2024-03-27 04:21] LABS: Blood Urea Nitrogen 20 mg/dl (9-20); Calcium 8.9 mg/dl (8.4-10.2); Carbon Dioxide 19 mmol/L (22-30); Chloride 110 mmol/L (98-107); Estimated Creatinine Clearance 58 ml/min; Glucose 101 mg/dl (70-99); Magnesium 2.1 mg/dl (1.6-2.3); Potassium 4.7 mmol/L (3.5-5.1); Sodium 141 mmol/L (135-145); eGFR > 60.00
--- NOTE | 2024-03-27 04:27 | PTCARENOTE ---
Lab work done. EKG completed.
[2024-03-27 05:59] LABS: Glucose - Point of Care 105 mg/dl (70-99)
[2024-03-27] MEDS: TYLENOL 1000 MG PO ×3 (06:01→21:29)
[2024-03-27] MEDS: SODIUM BICARBONATE 50 MEQ IV (06:01)
--- NOTE | 2024-03-27 06:45 | PTCARENOTE ---
Forrester d/c'ed at 0620 . Moose catheter d/c'ed per protocol at 0625. L radial A-line d/c'ed at 0630. Sodium Bicarb given as ordered. Tylenol 1 GM given as scheduled.
--- NOTE | 2024-03-27 07:30 | PTCARENOTE ---
Bedside walking rounds report received: patient is currently resting in bed and assisted oob to chair/weighed via standing scale and transitioned from 2l nasal canula to room air once sitting up. Oriented x 3. Denies significant pain. IS to 750ml.
Chest tubes x 3 : med plus right and left pleural to -20cm wall suction. No air leak and no 'dumping' with standing and sitting upright. NSR on monitor. See flowrecord for remaining assessments.
[2024-03-27 08:21] LABS: Glucose - Point of Care 152 mg/dl (70-99)
--- NOTE | 2024-03-27 08:30 | PTCARENOTE ---
Assisted back to bed: mediastinal chest tube sutures and mediastinal chest tube dc. Assisted back oob to chair
[2024-03-27] MEDS: LOPRESSOR 12.5 MG PO ×2 (09:02→21:28)
[2024-03-27] MEDS: MAGNESIUM OXIDE 500 MG PO ×2 (09:02→21:28)
[2024-03-27] MEDS: LIPITOR 80 MG PO (09:02)
[2024-03-27] MEDS: PACERONE 200 MG PO ×3 (09:02→21:28)
[2024-03-27] MEDS: BACTROBAN 2% OINTMENT 1 APPLIC NASAL ×2 (09:03→21:28)
[2024-03-27] MEDS: LOW STRENGTH ASPIRIN 81 MG PO (09:03)
[2024-03-27] MEDS: PROTONIX 40 MG PO (09:03)
[2024-03-27] MEDS: NEURONTIN 100 MG PO ×3 (09:03→21:28)
[2024-03-27] MEDS: PLAVIX 75 MG PO (09:03)
[2024-03-27] MEDS: SENOKOT-S 1 TABLET PO ×2 (09:03→21:28)
[2024-03-27 10:31] LABS: Glucose - Point of Care 133 mg/dl (70-99)
--- NOTE | 2024-03-27 12:00 | PTCARENOTE ---
No acute changes : left and right pleural chest tubes to bulb drain suction. Temp epicardial v wire insulated: medtronic box placed in close proximity to patient location. NSR.
[2024-03-27 12:23] LABS: Glucose - Point of Care 106 mg/dl (70-99)
--- NOTE | 2024-03-27 12:43 | W.PN.INTV ---
Today's Communication / Plan
Recommendations
Continue postoperative care
Daily x-ray
Monitor H&H
Monitor chest tube output
Analgesia with narcotics, monitor respiratory status closely
Continue cardiac management
Telemetry phase
Sign off
Assessment
-
Status post coronary artery bypass 03/26/2024
Postoperative mechanical ventilation
Postoperative anemia
Conditions present prior admission:
Hypertension
Hyperlipidemia
BPH
Assessment and plan:
Postoperative day 1
Extubated 03/26/2024
No oxygen requirements
Analgesia with narcotics-monitor respiratory status closely. Pain is controlled at the moment
Increase activity as able
Encouraged sent to the spirometer
Anemia noted-no evidence of acute bleeding
Follow H&H serially
Hemodynamics -stable off vasopressors
Adequate urinary output
Normal renal function
Chest tube with no excessive drainage-no air leak. Management per primary team
Chest x-ray reviewed: With no pneumothorax or fluid collections.
Glycemic control per protocol
DVT prophylaxis when safe from the surgical perspective.
Advance diet as tolerated
No additional recommendation from the critical care perspective.
Transition to telemetry
Sign off
Subjective Dataa
Subjective Data
Date of Service:
Date of Service: March 27, 2024
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
Subjective:
No overnight events
Pain is controlled
Off oxygen
Denies shortness of breath at rest
Some discomfort in the chest tube entry
Review of Systems
Cardiopulmonary: Cough (n) and Sputum Production
GI: Abdominal Pain (n), Nausea (n) and Vomiting (n)
Objective Data
Data Reviewed
Vital Signs / I&O / Oxygen:
Vital Signs
Temp Pulse Resp BP Pulse Ox
98.4 F 72 18 111/60 96
03/27/24 12:03 08/31/24 12:03 03/27/24 12:03 03/27/24 12:03 03/27/24 12:03
Intake and Output
03/26/24 03/27/24 03/28/24
06:59 06:59 06:59
Intake Total 980 / 980 864.9 / 864.9 468.7 / 468.7
Output Total 700 / 700 1060 / 1060 60 / 60
Balance 280 / 280 -195.1 / -195.1 408.7 / 408.7
SaO2 [CPAP] 99
SaO2 [SIMV] 98
SaO2 96
Nasal Cannula flow liters per 2
minute
Physical Exam
General: Comfortable
HEENT: Normocephalic
Cardiovascular: S1-S2
Respiratory: Clear and Chest Tube (No air leak or excessive drainage)
GI: Soft and Non Distended
Neurology: Awake, Alert, Oriented and No Motor Deficits
Skin: Warm
Labs/Micro/Reports
Lab Data
03/27/24 03:35
03/27/24 03:35
Laboratory Results
03/26/24 03/26/24 03/26/24
13:01 17:30 17:50
PT 15.4 H
INR 1.24
APTT 32.9
pH 7.39 Cancelled 7.36
pCO2 36 Cancelled 39
pO2 109 H Cancelled 110 H
HCO3 21.8 Cancelled 22.0
O2 Delivery Level Not Reportable Cancelled
--- NOTE | 2024-03-27 13:00 | PTCARENOTE ---
Bladder scanned for 75ml. No urge to void as of yet.
--- NOTE | 2024-03-27 13:30 | PTCARENOTE ---
Ambulated in hallway approximately 125feet on room air. Tolerated well.
[2024-03-27 13:38] LABS: Glucose - Point of Care 102 mg/dl (70-99)
--- NOTE | 2024-03-27 16:00 | PTCARENOTE ---
No acute changes. Vitals stable. Voided small amount urine in toilet.
[2024-03-27] MEDS: NSS IV (16:18)
--- NOTE | 2024-03-27 16:28 | W.PN.CD ---
Today's Communication / Plan
-
Hemodynamically stable. Remains in sinus rhythm. Continue postop care as directed by CT surgery
Impression / Plan
-
Impression/Plan: 73 y/o male with HTN, HLD admitted with NSTEMI after high risk stress test, found to have severe, multivessel CAD including in the LMCA.
#Non-STEMI
-Acute.
-Cardiac catheterization revealed multivessel CAD including LMCA.
#S/p CABG x 2 QUESADA to the LAD MICHELLE to OM left atrial appendage ligation #40 clip
#Hypertension
-Stable. Monitor postop.
#Hyperlipidemia
-Atorvastatin increased to 80 mg daily.
-Goal LDL < 55.
Subjective/Interval History:
CABG this morning.
DATA:
TTE, 03/24/2024:
CONCLUSIONS
LV ejection fraction is 60-65%. No regional wall motion abnormalities are seen.
Normal right ventricular size and function.
No significant valvular disease.
No prior study available for comparison.
Cardiac Catheterization, 03/25/2024:
CORONARY ANGIOGRAPHY
Dominance: Right
Left Main: 70% distal stenosis
LAD: 50% ostial stenosis. There is a focal 90% stenosis in the mid LAD distal to the takeoff of the small D1 and proximal to the origin of the larger D2. The remainder of the LAD has mild luminal irregularities.
Circumflex: The circumflex is occluded at its origin. There are collaterals from the conus branch and the terminal R AVG to supply 1 small and 1 large obtuse marginal branch of the circumflex.
RCA: Moderate calcification with diffuse mild disease of the proximal, mid, and distal RCA. The RPDA has diffuse disease with focal 70% mid to distal stenosis. RPL 1 and RPL 2 are small. RPL 3 is large with mild luminal irregularities.
Physical Exam
Vital Signs/Labs
Vital Signs
Temp Pulse Resp BP Pulse Ox
97.8 F 76 18 145/63 91
03/27/24 16:00 03/27/24 16:00 03/27/24 16:00 03/27/24 16:00 03/27/24 16:00
03/26/24 03/27/24 03/28/24
06:59 06:59 06:59
Actual Weight 75.1 kg 77.3 kg
03/27/24 03:35
03/27/24 03:35
PT 15.4 Sec (11.4-14.6) H 03/26/24 13:01
INR 1.24 03/26/24 13:01
APTT 32.9 Sec (23.4-35.0) 03/26/24 13:01
Magnesium 2.1 mg/dl (1.6-2.3) 03/27/24 03:35
Triglycerides 61 mg/dl (10-149) 03/25/24 03:40
LDL Cholesterol, Calc 71 mg/dl 03/25/24 03:40
VLDL Cholesterol, Calc 12 mg/dl (0-30) 03/25/24 03:40
HDL Cholesterol 39 mg/dl 03/25/24 03:40
LAB Results
03/24/24 03/24/24 03/25/24
17:52 20:59 01:08
Troponin I 0.263 H* 2.290 H* D 3.930 H* D
03/25/24 03/25/24
03:40 06:14
Troponin I 4.290 H* 3.500 H*
Physical Exam
Constitutional: No acute distress
Cardiovascular: Rhythm & rate is regular
Respiratory: Wheeze Absent and Rhonchi Absent
GI: Soft
Neuro/Psych: Alert
Data Reviewed
-
Date of Service: March 27, 2024
Medical Decision Making: Reviewed Test Results
Medical Tests (PFT, Pathology etc): Report Reviewed by me
Labs: Labs Reviewed by me
--- NOTE | 2024-03-27 20:41 | PTCARENOTE ---
assumed care of pt from day shift nurse, AAOx3, NSR per tele, v wire insulated, palpable pulses, pox 88% on RA, 2L of ocygen applied pox 92%, lungs diminished at bases, CT x2 L&R pleural to bulb suction, +BS, DTV will follow bladder scans, surgical
sites intact, PIV & RIJ Cordis intact, call desai within reach
[2024-03-28] VITALS (14 sets, daily range): BP systolic 123–150; BP diastolic 56–60; BMI 27.7
--- NOTE | 2024-03-28 04:14 | PTCARENOTE ---
routine labs obtained, VSS, assessment remains unchanged
[2024-03-28 04:30] LABS: Hematocrit 29.4 % (39.0-52.0); Hemoglobin 10.2 g/dL (13.0-18.0); Mean Corp Hgb Conc. 34.7 g/dL (33.0-37.0); Mean Corpuscular Hgb 30.2 pg (27.0-31.0); Platelet Count 152 10^3/uL (130-400); Red Blood Cell Count 3.38 10^6/uL (4.70-6.10); White Blood Cell Count 23.3 10^3/uL (4.8-10.8)
--- NOTE | 2024-03-28 04:39 | PTCARENOTE ---
routine labs obtained, VSS, NSR per tele, assessment remains unchanged
[2024-03-28 04:56] LABS: Blood Urea Nitrogen 37 mg/dl (9-20); Calcium 8.4 mg/dl (8.4-10.2); Carbon Dioxide 27 mmol/L (22-30); Chloride 104 mmol/L (98-107); Estimated Creatinine Clearance 49 ml/min; Glucose 118 mg/dl (70-99); Magnesium 2.4 mg/dl (1.6-2.3); Potassium 4.3 mmol/L (3.5-5.1); Sodium 140 mmol/L (135-145); eGFR > 60.00
--- NOTE | 2024-03-28 05:00 | W.PN.CT ---
Today's Communication / Plan
-
Plan:
-No major issues overnight. Hemodynamically and neurologically intact
-Off all drips
-Noted to have postop urinary retention following yusuf removal, finally able to void @ midnight, follow up
-Monitor rising cr 1.2 today, was 0.8-0.9 preop
-Magnesium 2.4, mag oxide placed on hold
-Cont. current meds (ASA, Plavix, Amiodarone, Lopressor, Lipitor)
-Monitor chest tube drainage for possible d/c: R pl 50/60; L pl 60/70. CXR this AM looks clear
-Encourage use of IS
-Wean off of O2 as tolerated
-OOB into chair/Ambulate
-Possible D/C home tomorrow
Assessment / Plan
-
Assessment:
-S/p Off-pump Cabg x 2 (chen- lad, pipe- om)/CRYSTAL ligation #40 clip, by Dr. Smith, 03/26/24, pod#2
-Severe multivessel CAD/70% distal LM
-NSTEMI (peak trop 4.29)
-LVEF 65-70% per intraop DEV
-HTN
-HLD
-Prediabetes (A1C 5.7)
-BPH
-S/P Tonsillectomy
-Acute postop blood loss/Anemia (stable, no transfusion required)
-Acute postop atelectasis
-Acute postop hypovolemia with subsequent hypervolemia
-Acute postop urinary retention
Discussed patient care with: Cardiology, Nursing, Respiratory Therapy, Pharmacy and Care Team
Subjective
Procedure
S/p Off-pump Cabg x 2 (chen- lad, pipe- om)/CRYSTAL ligation #40 clip, by Dr. Smith, 03/26/24
-
Date of Service: March 28, 2024
Pt c/o mild incisional pain, otherwise feels well
Objective Data
-
Lab Results
03/28/24 04:04
03/28/24 04:04
PT 15.4 Sec (11.4-14.6) H 03/26/24 13:01
INR 1.24 03/26/24 13:01
APTT 32.9 Sec (23.4-35.0) 03/26/24 13:01
Vital Signs
Vital Signs
Temp Pulse Resp BP Pulse Ox
97.9 F 74 12 139/56 94
03/28/24 04:10 03/28/24 04:08 03/28/24 04:10 03/28/24 04:08 03/28/24 04:10
CT Intake/Output/Weight
03/27/24 03/27/24 03/28/24
06:59 18:59 06:59
Intake Total 300.4 / 864.9 853.7 / 853.7
Output Total 590 / 1060 80 / 250 170 / 250
Balance -289.6 / -195.1 773.7 / 603.7 -170 / 603.7
SaO2: 94 (2L)
Physical Exam
-
General: Awake, Oriented and AOx3
Cardiovascular: Regular rate & rhythm, No Murmurs, No Rub and No Gallop
Respiratory: Decreased Breath Sounds (at bases, otherwise clear)
Sternum: Stable
Incision: Clean, Dry, Intact and Dressing Intact
Extremities: No Edema
Data Reviewed
-
Lab Results: Results Reviewed
Medications: Active Meds Reviewed
Chest X-Ray: Report Reviewed and Image Reviewed
ECG: Report Reviewed and Image Reviewed
--- NOTE | 2024-03-28 07:00 | PTCARENOTE ---
Bedside walking rounds report received: patient is currently resting in bed and assisted oob to chair/weighed via standing scale and transitioned from 2l nasal canula to room air once sitting up. Oriented x 3. Denies significant pain. IS to 1000ml.
Chest tubes 2:right and left pleural to bulb drain suction. No air leak and no 'dumping' with standing and sitting upright. NSR on monitor. See flowrecord for remaining assessments.Plan to maintain chest tubes today and increase ambulation.
[2024-03-28] MEDS: TYLENOL 1000 MG PO ×2 (09:13→20:57)
[2024-03-28] MEDS: PROTONIX 40 MG PO (09:13)
[2024-03-28] MEDS: PLAVIX 75 MG PO (09:14)
[2024-03-28] MEDS: LIPITOR 80 MG PO (09:14)
[2024-03-28] MEDS: LOPRESSOR 12.5 MG PO ×2 (09:15→13:05)
[2024-03-28] MEDS: LOW STRENGTH ASPIRIN 81 MG PO (09:15)
[2024-03-28] MEDS: NEURONTIN 100 MG PO ×3 (09:16→20:55)
[2024-03-28] MEDS: SENOKOT-S 1 TABLET PO (09:16)
[2024-03-28] MEDS: BACTROBAN 2% OINTMENT 1 APPLIC NASAL ×2 (09:16→20:58)
[2024-03-28] MEDS: PACERONE 200 MG PO ×3 (09:16→20:56)
--- NOTE | 2024-03-28 11:03 | W.PN.CD ---
Today's Communication / Plan
-
Patient is comfortable in a chair. Remains hemodynamic stable in sinus rhythm.
Continue your postop care as directed by CT surgery
Impression / Plan
-
Impression/Plan: 73 y/o male with HTN, HLD admitted with NSTEMI after high risk stress test, found to have severe, multivessel CAD including in the LMCA.
#Non-STEMI
-Acute.
-Cardiac catheterization revealed multivessel CAD including LMCA.
#S/p CABG x 2 QUESADA to the LAD MICHELLE to OM left atrial appendage ligation #40 clip
#Hypertension
-Stable. Monitor postop.
#Hyperlipidemia
-Atorvastatin increased to 80 mg daily.
-Goal LDL < 55.
Subjective/Interval History:
CABG this morning.
DATA:
TTE, 03/24/2024:
CONCLUSIONS
LV ejection fraction is 60-65%. No regional wall motion abnormalities are seen.
Normal right ventricular size and function.
No significant valvular disease.
No prior study available for comparison.
Cardiac Catheterization, 03/25/2024:
CORONARY ANGIOGRAPHY
Dominance: Right
Left Main: 70% distal stenosis
LAD: 50% ostial stenosis. There is a focal 90% stenosis in the mid LAD distal to the takeoff of the small D1 and proximal to the origin of the larger D2. The remainder of the LAD has mild luminal irregularities.
Circumflex: The circumflex is occluded at its origin. There are collaterals from the conus branch and the terminal R AVG to supply 1 small and 1 large obtuse marginal branch of the circumflex.
RCA: Moderate calcification with diffuse mild disease of the proximal, mid, and distal RCA. The RPDA has diffuse disease with focal 70% mid to distal stenosis. RPL 1 and RPL 2 are small. RPL 3 is large with mild luminal irregularities.
Physical Exam
Vital Signs/Labs
Vital Signs
Temp Pulse Resp BP Pulse Ox
98.6 F 76 18 139/58 97
03/28/24 09:10 03/28/24 09:10 03/28/24 09:10 03/28/24 09:10 03/28/24 09:10
03/27/24 03/28/24 03/29/24
06:59 06:59 06:59
Actual Weight 77.9 kg
03/28/24 04:04
03/28/24 04:04
PT 15.4 Sec (11.4-14.6) H 03/26/24 13:01
INR 1.24 03/26/24 13:01
APTT 32.9 Sec (23.4-35.0) 03/26/24 13:01
Magnesium 2.4 mg/dl (1.6-2.3) H 03/28/24 04:04
Triglycerides 61 mg/dl (10-149) 03/25/24 03:40
LDL Cholesterol, Calc 71 mg/dl 03/25/24 03:40
VLDL Cholesterol, Calc 12 mg/dl (0-30) 03/25/24 03:40
HDL Cholesterol 39 mg/dl 03/25/24 03:40
Physical Exam
Constitutional: No acute distress
Cardiovascular: Rhythm & rate is regular
Respiratory: Wheeze Absent and Rhonchi Absent
GI: Soft
Neuro/Psych: Alert
Data Reviewed
-
Date of Service: March 28, 2024
Medical Decision Making: Reviewed Test Results
Medical Tests (PFT, Pathology etc): Report Reviewed by me
Labs: Labs Reviewed by me
--- NOTE | 2024-03-28 11:20 | PTCARENOTE ---
Ambulated 225 feet on room air: stooped posture and shuffling gait at times, but improving compared to previous day. See post activity vitals.
--- NOTE | 2024-03-28 15:43 | CHAP ---
Mr. Avila was in good spirits, looking forward to going home. Emotional and spiritual support provided.
[2024-03-28] MEDS: TYLENOL PO (16:43)
[2024-03-28] MEDS: NSS 500 IV (16:50)
--- NOTE | 2024-03-28 17:30 | PTCARENOTE ---
3rd walk of day in hallway: 250feet on room air. NSR.
--- NOTE | 2024-03-28 20:00 | PTCARENOTE ---
Assumed care of patient at 1900. Patient found resting in bed at time of assessment. Patient is AOx4, follows commands appropriately, moves all extremities. Lung sounds are diminished at the bases saO2 90% on RA, patient has a R/L pleural CT to bulb
suction with serosanguineous drainage. Heart sounds have a regular rate and rhythm, normal palpable pulses throughout, patient is SR on the monitor, no observable edema. Patient has active BS throughout all four quadrants and is voiding. Patient has
a R IJ cordis receiving KVO, L arm 20G, and R AC 18G. Patient has a sternal incision approx with surg adhesive JOSE LUIS, and ABD dressing over CT wounds that is CDI. Patient is stable.
[2024-03-28] MEDS: LOPRESSOR 25 MG PO (20:57)
[2024-03-28] MEDS: SENOKOT-S PO (20:57)
--- NOTE | 2024-03-29 | PTCARENOTE ---
Patient reassessed. VSS. Remains SR on the monitor. Patient placed on 2L O2 per CT PA.
[2024-03-29 04:30] VITALS: BP 139/60
--- NOTE | 2024-03-29 04:59 | W.PN.CT ---
Today's Communication / Plan
-
Plan:
-No major issues overnight. Hemodynamically and neurologically intact
-Urinary retention has resolved
-Creatinine is @ baseline of 0.9
-Cont. current meds (ASA, Plavix, Amiodarone, Lopressor, Lipitor)
-D/C cordis
-D/C chest tubes: Rpl /35, Lpl
-Encourage use of IS
-Will d/c PW tomorrow
-OOB into chair/Ambulate
-Home tomorrow (wants to stay another day)
Assessment / Plan
-
Assessment:
-S/p Off-pump Cabg x 2 (chen- lad, pipe- om)/CRYSTAL ligation #40 clip, by Dr. Smith, 03/26/24, pod#3
-Severe multivessel CAD/70% distal LM
-NSTEMI (peak trop 4.29)
-LVEF 65-70% per intraop DEV
-HTN
-HLD
-Prediabetes (A1C 5.7)
-BPH
-S/P Tonsillectomy
-Acute postop blood loss/Anemia (stable, no transfusion required)
-Acute postop atelectasis
-Acute postop hypovolemia with subsequent hypervolemia
-Acute postop urinary retention
Discussed patient care with: Cardiology, Nursing, Respiratory Therapy, Pharmacy and Care Team
Subjective
Procedure
S/p Off-pump Cabg x 2 (chen- lad, pipe- om)/CRYSTAL ligation #40 clip, by Dr. Smith, 03/26/24
-
Date of Service: March 29, 2024
Pt c/o mild incisional pain, otherwise feels well. Ambulating halls without difficulty. Wants to stay another day
Objective Data
-
PT 15.4 Sec (11.4-14.6) H 03/26/24 13:01
INR 1.24 03/26/24 13:01
APTT 32.9 Sec (23.4-35.0) 03/26/24 13:01
Vital Signs
Vital Signs
Temp Pulse Resp BP Pulse Ox
98.9 F 63 20 123/58 97
03/28/24 23:00 03/29/24 03:30 03/28/24 23:00 03/28/24 23:52 03/28/24 23:00
CT Intake/Output/Weight
03/28/24 03/28/24 03/29/24
06:59 18:59 06:59
Intake Total 380 / 380
Output Total 410 / 490 65 / 90 25 / 90
Balance -410 / 363.7 315 / 290 -25 / 290
SaO2: 97 (RA)
Physical Exam
-
General: Awake, Oriented and AOx3
Cardiovascular: Regular rate & rhythm, No Murmurs, No Rub and No Gallop
Respiratory: Decreased Breath Sounds (at bases, otherwise clear)
Sternum: Stable
Incision: Clean, Dry, Intact and Dressing Intact
Extremities: No Edema
Data Reviewed
-
Lab Results: Results Reviewed
Medications: Active Meds Reviewed
Chest X-Ray: Report Reviewed and Image Reviewed
ECG: Report Reviewed and Image Reviewed
[2024-03-29 05:01] LABS: Hematocrit 30.6 % (39.0-52.0); Hemoglobin 10.5 g/dL (13.0-18.0); Mean Corp Hgb Conc. 34.3 g/dL (33.0-37.0); Mean Corpuscular Hgb 30.1 pg (27.0-31.0); Mean Corpuscular Volume 87.7 fL (80.0-94.0); Mean Platelet Volume 13.1 fL (7.4-10.4); Platelet Count 130 10^3/uL (130-400); Red Blood Cell Count 3.49 10^6/uL (4.70-6.10); Red Cell Dist. Width 14.1 % (11.5-14.5); White Blood Cell Count 16.4 10^3/uL (4.8-10.8)
[2024-03-29 05:25] LABS: Blood Urea Nitrogen 33 mg/dl (9-20); Calcium 8.5 mg/dl (8.4-10.2); Carbon Dioxide 27 mmol/L (22-30); Chloride 103 mmol/L (98-107); Estimated Creatinine Clearance 65 ml/min; Glucose 105 mg/dl (70-99); Magnesium 2.3 mg/dl (1.6-2.3); Potassium 4.9 mmol/L (3.5-5.1); Sodium 138 mmol/L (135-145); eGFR > 60.00
--- NOTE | 2024-03-29 05:44 | PTCARENOTE ---
Patient reassessed. VSS. No c/o pain. AM labs obtained. Remains SR on the monitor. Patient is stable.
[2024-03-29 06:00] VITALS: BMI 27.9
[2024-03-29] MEDS: TYLENOL 1000 MG PO ×2 (07:26→21:29)
[2024-03-29 07:45] VITALS: BP 117/54
[2024-03-29] MEDS: PLAVIX 75 MG PO (09:36)
[2024-03-29] MEDS: LIPITOR 80 MG PO (09:36)
[2024-03-29] MEDS: PROTONIX 40 MG PO (09:37)
[2024-03-29] MEDS: BACTROBAN 2% OINTMENT 1 APPLIC NASAL ×2 (09:37→21:28)
[2024-03-29] MEDS: NORVASC 5 MG PO (09:37)
[2024-03-29] MEDS: PACERONE 200 MG PO ×2 (09:37→16:22)
[2024-03-29] MEDS: SENOKOT-S 1 TABLET PO (09:37)
[2024-03-29] MEDS: LOW STRENGTH ASPIRIN 81 MG PO (09:37)
[2024-03-29] MEDS: NEURONTIN 100 MG PO ×3 (09:37→21:29)
--- NOTE | 2024-03-29 11:00 | PTCARENOTE ---
assumed care of pt from previous shift RN, sinus rhythm on tele, + peripheral pulses, no edema noted. Lungs diminished, coughing and deep breathing encouraged. Post op sites stable. CTs to be discontinued. Cordis and PIV flush easily. plan of care
reviewed w the pt and questions encouraged.
[2024-03-29] MEDS: NSS IV (11:27)
--- NOTE | 2024-03-29 13:03 | PTCARENOTE ---
Pleural CTs and cordis removed without incident. Pacing wire removed by CT LICHA. Post removal CXR completed.
[2024-03-29 14:22] VITALS: BP 158/67
[2024-03-29] MEDS: TYLENOL PO (14:27)
[2024-03-29] MEDS: SENOKOT-S PO ×2 (16:22→22:01)
[2024-03-29 19:00] VITALS: BP 134/62
[2024-03-29 19:26] VITALS: BP 134/62
--- NOTE | 2024-03-29 20:00 | PTCARENOTE ---
Assumed care of patient at 1900. Patient found OOB in chair at time of assessment. Patient is AOx4, follows commands appropriately, moves all extremities. Lung sounds are diminished in the bases, patient has an saO2 of 93% on RA. Heart sounds have a
regular rate and rhythm, patient is SR on the monitor, normal palpable pulses throughout, no observable edema. Patient has active BS throughout all four quadrants of soft nontender abdomen. Patient is voiding clear yellow in the bathroom. There is a
sternal incision approx with surg adhesive JOSE LUIS and ABD dressing over CT wound that is CDI. There is a L FA PIV available for intermittent infusion. Patient is stable.
[2024-03-29 21:22] VITALS: BP 134/62
[2024-03-29] MEDS: LOPRESSOR 25 MG PO (21:31)
[2024-03-30] VITALS (8 sets, daily range): BP systolic 115–139; BP diastolic 59–63; PULSE 67; O2SAT 94–100; BMI 27.9
--- NOTE | 2024-03-30 00:37 | PTCARENOTE ---
Patient reassessed. VSS. No c/o pain. Remains SR on the monitor.
--- NOTE | 2024-03-30 04:18 | PTCARENOTE ---
Patient reassessed. VSS. AM labs obtained. Remains SR on the monitor.
[2024-03-30 04:30] LABS: Hematocrit 30.4 % (39.0-52.0); Hemoglobin 10.4 g/dL (13.0-18.0); Mean Corp Hgb Conc. 34.2 g/dL (33.0-37.0); Mean Corpuscular Hgb 30.1 pg (27.0-31.0); Mean Corpuscular Volume 88.1 fL (80.0-94.0); Mean Platelet Volume 13.2 fL (7.4-10.4); Platelet Count 161 10^3/uL (130-400); Red Blood Cell Count 3.45 10^6/uL (4.70-6.10); Red Cell Dist. Width 14.2 % (11.5-14.5); White Blood Cell Count 13.7 10^3/uL (4.8-10.8)
[2024-03-30 04:43] LABS: Blood Urea Nitrogen 27 mg/dl (9-20); Carbon Dioxide 29 mmol/L (22-30); Chloride 102 mmol/L (98-107); Estimated Creatinine Clearance 53 ml/min; Glucose 118 mg/dl (70-99); Magnesium 2.4 mg/dl (1.6-2.3); Sodium 138 mmol/L (135-145); eGFR > 60.00
--- NOTE | 2024-03-30 05:33 | W.PN.CT ---
Today's Communication / Plan
-
Plan:
-No major issues overnight. Hemodynamically and neurologically intact
-Urinary retention has resolved
-Cont. current meds (ASA, Plavix, Amiodarone, Lopressor, Lipitor)
-F/U 2-view cxr
-Encourage use of IS
-D/C'd temporary PW yesterday 03/29 without incident
-OOB into chair/Ambulate
-Home today
Assessment / Plan
-
Assessment:
-S/p Off-pump Cabg x 2 (chen- lad, pipe- om)/CRYSTAL ligation #40 clip, by Dr. Smith, 03/26/24, pod#4
-Severe multivessel CAD/70% distal LM
-NSTEMI (peak trop 4.29)
-LVEF 65-70% per intraop DEV
-HTN
-HLD
-Prediabetes (A1C 5.7)
-BPH
-S/P Tonsillectomy
-Acute postop blood loss/Anemia (stable, no transfusion required)
-Acute postop atelectasis
-Acute postop hypovolemia with subsequent hypervolemia
-Acute postop urinary retention
Discussed patient care with: Cardiology, Nursing, Respiratory Therapy, Pharmacy and Care Team
Subjective
Procedure
S/p Off-pump Cabg x 2 (chen- lad, pipe- om)/CRYSTAL ligation #40 clip, by Dr. Smith, 03/26/24
-
Date of Service: March 30, 2024
Pt c/o mild incisional pain, otherwise feels well. Ambulating halls without difficulty
Objective Data
-
Lab Results
03/30/24 03:50
03/30/24 03:50
PT 15.4 Sec (11.4-14.6) H 03/26/24 13:01
INR 1.24 03/26/24 13:01
APTT 32.9 Sec (23.4-35.0) 03/26/24 13:01
Vital Signs
Vital Signs
Temp Pulse Resp BP Pulse Ox
98.2 F 66 20 115/60 92
03/30/24 03:00 03/30/24 04:00 03/30/24 03:00 03/30/24 03:41 03/30/24 03:00
CT Intake/Output/Weight
03/29/24 03/29/24 03/30/24
06:59 18:59 06:59
Intake Total 120 / 500 10 / 10
Output Total 45 / 110
Balance 75 / 390 10 / 10
SaO2: 94 (RA)
Physical Exam
-
General: Awake, Oriented and AOx3
Cardiovascular: Regular rate & rhythm, No Murmurs, No Rub and No Gallop
Respiratory: Decreased Breath Sounds (at bases, otherwise clear)
Sternum: Stable
Incision: Clean, Dry, Intact and Dressing Intact
Extremities: No Edema
Data Reviewed
-
Lab Results: Results Reviewed
Medications: Active Meds Reviewed
Chest X-Ray: Report Reviewed and Image Reviewed
ECG: Report Reviewed and Image Reviewed
[2024-03-30] MEDS: TYLENOL 1000 MG PO (07:21)
--- NOTE | 2024-03-30 08:20 | W.DCSUMMARY ---
Discharge Summary
Discharge Data
Date of Admission: 03/24/24
Date of Discharge: 03/30/24
-
Pending Results: No
Hospital Course
Primary care physician: Fredis Andrade
Outpatient licensed esthetician: Jorge Purvis
Inpatient consultants: [facility]
Procedures:
1. Coronary artery bypass grafting and left atrial appendage clip
Primary Diagnosis:
1. NSTEMI/triple-vessel coronary disease
Secondary Diagnoses:
1. Hypertension
2. Hyperlipidemia
HPI: 73 y.o, male has positive Lexiscan nuclear stress test on 03/24 with post stress test EKG changes. Patient instructed to go to the emergency room where he ruled in for NSTEMI. IV Heparin was initiated and left heart cath 03/25 reported left
main/triple vessel disease.
Hospital course: Patient underwent off-pump CABG x 2 (QUESADA to LAD and MICHELLE Y from QUESADA to OM) due to significant aortic calcifications, and left atrial appendage exclusion with #[address] Amauri Smtih on 03/26/2024. Patient received no
intraoperative blood products and returned to CVICU on Precedex and insulin. Patient was extubated at 1810 on day of surgery. Forrester catheter and 1 medial chest sternal chest tube were removed on postoperative day #1. Beta-facundo dose was
increased to 25 mg twice daily on postoperative day #2. Right IJ cordis and right and left pleural chest tubes were removed on postoperative day #3. Temporary pacemaker wires were cut to skin level. Patient ambulated with cardiac rehab and did
well. Postoperative day #4, patient was deemed stable for discharge to home. Losartan 100 mg daily was discontinued as blood pressure stable on metoprolol, and atorvastatin dose was increased from 20 to 80 mg daily. A predischarge 2 view CXR was
performed on postoperative day 5 and revealed no pneumothorax or pleural effusion.
Home medication changes:
Stop Losartan
Atorvastatin (Lipitor) dose increased to 80mg daily after bypass surgery
Aspirin/clopidogrel (Plavix) and metoprolol added after bypass surgery
Discharge Plan
-
Patient Disposition: Home (Routine Discharge)
Discharge Diagnosis/Procedures: CAD/CABG
Condition: Good
Diet: Low Fat, Low Cholesterol and Low Sodium
Activity: As tolerated
Driving Restrictions: Not until seen by your Dr
Bathing Restrictions: OK to Shower
Other Services: Cardiac Rehab
Wound Care: Daily with soap and water, pat/dry. No cream or lotion over incision for 4 weeks
Specialty Instructions: Weigh Daily- Call MD for wt gain/loss 3 lbs overnight/5 lbs in 1 week
Activity Restrictions/Additional Instructions:
ACTIVITY:
-No strenuous activity: no heavy lifting, pushing, pulling anything over 15 pounds for one month
-continue to use stairs as tolerated
DRIVING RESTRICTIONS:
-No driving for one month or until approved by your surgeon
WOUND CARE:
-Shower daily. Use soap & water.
-No lotions, creams or powders on incision area.
DIET:
-continue a low fat/low cholesterol diet.
-IF you are diabetic, continue carb controlled diet.
CARDIAC REHAB:
-Please make appointment to start in 5-6 weeks with your local hospital program. (See Cardiac Rehabilitation Discharge Booklet).
SPECIALTY INSTRUCTIONS:
-Weigh yourself daily. Call your physician for any weight gain/loss of 3 lbs overnight or 5 lbs in one week.
-REPORT any clicking noise or uneven appearance of your sternum to your surgeon immediately.
-If you smoke, you are instructed to quit. The [place] smoking hotline phone number is [phone]
Referrals:
CT Transitional Care Nurse [Outside] (The Cardiothoracic Transitional Care Nurse will call you to set up a visit in 1-2 days.)
[facility] Cardiac Rehab [Outside] - 04/30/24 1:00 pm
(Cardiac Rehab Orientation and First Exercise appointment is on April 30, 2024 at 1 PM.
The Cardiac Rehab gym is located on the first floor of the [facility].)
Fredis Andrade MD [Non-Admitting Privileges] - in one to two months
Jorge Purvis DO [Active] - 05/03/24 1:20 pm
(Appointment location is at:
[address]
[place] [address]
([facility]'s Home location))
Amauri Smith MD [Active] - 04/26/24 9:30 am
Additional Discharge Medication Instructions: New increased dose atorvastatin 80mg after bypass surgery
Stop losartan until seen by your doctor
Aspirin, clopidogrel, and metoprolol after bypass surgery
Prescriptions:
New
atorvastatin 80 mg Tablet
80 mg PO DAILY Qty: 30 2RF
sennosides-docusate sodium 8.6-50 mg Tablet
1 tab PO TID Qty: 20 1RF
clopidogrel 75 mg Tablet
75 mg PO DAILY Qty: 30 3RF
pantoprazole 40 mg Tablet,Delayed Release (Dr/Ec)
40 mg PO DAILY Qty: 30 3RF
aspirin 81 mg Tablet,Chewable
81 mg PO DAILY Qty: 30 2RF
metoprolol tartrate 25 mg Tablet
25 mg PO BID Qty: 60 2RF
acetaminophen 325 mg Tablet
650 mg PO Q4HPRN PRN (Reason: mild pain,headache,temp >101F ) Qty: 0 0RF
Continued
amlodipine 5 mg Tablet
5 mg PO DAILY
therapeutic multivitamin Tablet
1 tab PO DAILY
ascorbic acid (vitamin C) [Vitamin C] 500 mg Tablet
500 mg PO DAILY
Discontinued
atorvastatin 20 mg Tablet
20 mg PO HS
losartan 100 mg Tablet
100 mg PO DAILY
Discharge Orders:
Discharge Patient (As Directed); Ordered 03/30/24
Ordered By: Leann Alize
Care Plan Goals
Care Plan Goals:
Problem: Readiness for enhanced knowledge related to diagnosis and treatment plan
Goal: Understand your diagnosis and treatment plan needs, including medications if applicable.
Instructions: Know your diagnosis, underlying causes and treatment plan options, including medications if applicable. Consult with your health care team to learn about your diagnosis and treatment plan, including medications if applicable.
Discharge Date and Time
Print Language: MACEDONIAN
[2024-03-30] MEDS: NORVASC 5 MG PO (09:01)
[2024-03-30] MEDS: LOW STRENGTH ASPIRIN 81 MG PO (09:01)
[2024-03-30] MEDS: LIPITOR 80 MG PO (09:01)
[2024-03-30] MEDS: PROTONIX 40 MG PO (09:01)
[2024-03-30] MEDS: PLAVIX 75 MG PO (09:01)
[2024-03-30] MEDS: NEURONTIN 100 MG PO (09:02)
[2024-03-30] MEDS: PACERONE 200 MG PO (09:02)
[2024-03-30] MEDS: NSS IV (09:02)
[2024-03-30] MEDS: SENOKOT-S 1 TABLET PO (09:02)
[2024-03-30] MEDS: LOPRESSOR 25 MG PO (09:02)
[2024-03-30] MEDS: BACTROBAN 2% OINTMENT 1 APPLIC NASAL (09:02)
--- NOTE | 2024-03-30 09:05 | PTCARENOTE ---
Assumed care of patient at 0700. Pt is awake, alert, and oriented. No complaints of pain at this time. Pt remains SR with HR 70's. BP 136/59 MAP 83. Pulse oximetry 96% on room air. Pt tolerating PO diet. Pt had bowel movement today. Voiding without
difficulty. Midsternal incision approximated and JOSE LUIS. Pt currently OOB in chair resting comfortably eating breakfast.
--- NOTE | 2024-03-30 10:41 | CM ---
Reviewed chart. Met with Mr. Avila to review discharge plans. He states he is feeling well and maybe able to go home soon. He states he ambulated in the hallway and did the stairs today. We reviewed a home visit by the Cardiothoracic
Transitional Care Nurse. He is agreeable to a home visit. Prior to admission he resides with his spouse in a one story home with a basement. He has eight steps to get to his basement. Prior to admission he was independent with ambulation and adls.
He does not have any DME in the home. He has a prescription plan and uses [facility]. His spouse will be home to assist in his care if needed. Medical work-up in progress. The discharge plan is to return home with his spouse and a
home visit by the Cardiothoracic Transitional Care Nurse when medically stable.
--- NOTE | 2024-03-30 12:55 | PTCARENOTE ---
2 view x-ray completed. Steps completed with cardiac rehab. Discharge order received. Reviewed discharge instructions with pt, pt's and adult son. Questions addressed. Pt stable at discharge. SR, HR 63. BP 127/63 MAP 82. Pulse oximetry 98% on
room air. Sternal incision approximated and WAREHOUSE CONSULTANT. Chest tube sites WAREHOUSE CONSULTANT. Peripheral IV removed. Volunteer to bedside with wheelchair for discharge home.
== END 2024-03-30 13:00 | disposition home or self-care (01) | DRG 234 ==
LOC: CVICU 21:14
PROVIDERS: Anesthesiology; Internal Medicine Cardiovascular Disease; Physician Assistant; Physician Assistant Medical; Registered Nurse; ADMITTING PHYSICIAN Hospitalist; ATTENDING PHYSICIAN Thoracic Surgery (Cardiothoracic Vascular Surgery); CONSULT PHYSICIAN Internal Medicine Cardiovascular Disease; CONSULT PHYSICIAN Internal Medicine Critical Care Medicine; EMERGENCY PHYSICIAN Emergency Medicine
PROC: B2151ZZ Fluoroscopy of Left Heart using Low Osmolar Contrast (ICD-10-PCS; 2024-03-25)
PROC: 4A023N7 Measurement of Cardiac Sampling and Pressure, Left Heart, Percutaneous Approach (ICD-10-PCS; 2024-03-25)
PROC: B2111ZZ Fluoroscopy of Multiple Coronary Arteries using Low Osmolar Contrast (ICD-10-PCS; 2024-03-25)
PROC: 02L70CK Occlusion of Left Atrial Appendage with Extraluminal Device, Open Approach (ICD-10-PCS; 2024-03-26)
PROC: B24BZZ4 Ultrasonography of Heart with Aorta, Transesophageal (ICD-10-PCS; 2024-03-26)
PROC: 02110Z9 Bypass Coronary Artery, Two Arteries from Left Internal Mammary, Open Approach (ICD-10-PCS; 2024-03-26)
DX: I21.4 Non-ST elevation (NSTEMI) myocardial infarction (principal); D62 Acute posthemorrhagic anemia; J98.11 Atelectasis; I25.10 Atherosclerotic heart disease of native coronary artery without angina pectoris; I10 Essential (primary) hypertension; E78.00 Pure hypercholesterolemia, unspecified; N40.0 Benign prostatic hyperplasia without lower urinary tract symptoms; E86.1 Hypovolemia; E87.70 Fluid overload, unspecified; N99.89 Other postprocedural complications and disorders of genitourinary system; R73.03 Prediabetes; R33.8 Other retention of urine; Y83.2 Surgical operation with anastomosis, bypass or graft as the cause of abnormal reaction of the patient, or of later complication, without mention of misadventure at the time of the procedure; Z79.899 Other long term (current) drug therapy; Z82.49 Family history of ischemic heart disease and other diseases of the circulatory system
CPT/HCPCS: 71045; 71046; 80048; 80053; 80061; 81003; 81015; 82330; 82565; 82805; 82947; 82962; 83036; 83735; 84132; 84302; 84484; 84520; 85014; 85018; 85025; 85027; 85049; 85610; 85730; 86850; 86900; 86901; 86920; 93005; 93306; 93312; 93320; 93325; 93458; 93880; 94002; 96365; 96366; 99285; C1713; C1894; P9045; Q9950; Q9967

== ENCOUNTER → 2024-04-05 16:05 | Outpatient (REF) | payer MEDICARE, BC, SELFPAY | LOC: RCS 16:05 | PROVIDERS: ATTENDING PHYSICIAN Thoracic Surgery (Cardiothoracic Vascular Surgery); FAMILY PHYSICIAN Internal Medicine | DX: R00.2 Palpitations (principal) | CPT/HCPCS: 93005 ==

== ENCOUNTER 2024-05-26 13:35 | Outpatient (RCR) | payer MEDICARE, BC, SELFPAY | END 2024-05-26 23:59 | disposition home or self-care (01) | LOC: CRHB 13:35 | PROVIDERS: ATTENDING PHYSICIAN Orthopaedic Surgery | DX: I21.4 Non-ST elevation (NSTEMI) myocardial infarction (principal); Z95.1 Presence of aortocoronary bypass graft; I25.10 Atherosclerotic heart disease of native coronary artery without angina pectoris | CPT/HCPCS: G0422; G0423 ==

== ENCOUNTER 2024-06-21 12:51 | Emergency (ER) | payer MEDICARE, BC, SELFPAY ==
[2024-06-21 12:52] VITALS: BMI 25.4
[2024-06-21 12:53] VITALS: BP 160/105
--- NOTE | 2024-06-21 12:54 | ED.GENMED ---
ED Provider Triage
<Mary Carreno SEWER PIPE PRESS OPERATOR - Last Filed: 06/21/24 13:50>
-
Patient seen by provider in Triage?: Seen in Triage
Attestation: A medical screening examination has been initiated by a qualified medical provider. Based on the assessment performed at this time, it has been determined that an emergent medical condition may exist and the patient has been informed
that further medical evaluation and possible additional diagnostic testing may be needed.
HPI: Rectal pain with constipation. Last BM 4 days ago. Few hard small stools since. Denies abdominal pain. Put Glycerine suppos. 9 a.m. no results yet.
Enlarged prostate.
GENERAL: Alert , in no apparent distress
EYE: No visual abnormalities.
ENT: No visible abnormalities.
LUNGS: No acute respiratory distress
NEUROLOGICAL: Alert and oriented
SKIN: Skin intact. No visible changes.
MUSCULOSKELETAL: Moving extremities normally
PSYCH: Normal and appropriate interaction.
This is a medical evaluation conducted in person to initiate diagnostic evaluation and provide initial therapeutics. Please see further documentation by the treating clinician.
History of Present Illness
<Mary Carreno SEWER PIPE PRESS OPERATOR - Last Filed: 06/21/24 13:50>
General
Chief Complaint: Abdominal Symptoms
Time Seen by Provider: 06/21/24 12:53
<Regan Gibbons PA-C - Last Filed: 06/21/24 20:17>
History of Present Illness
History of Present Illness:
73-year-old male presents to the emergency department for evaluation of constipation and rectal pain ongoing for the past 4 to 5 days. Has tried glycerin suppositories and oral laxatives without relief. Having frequent spastic bouts of rectal pain.
Review of Systems
<Regan Gibbons PA-C - Last Filed: 06/21/24 20:17>
Review of Systems
Allergies reviewed?: Yes
All Other Systems: ROS reviewed and negative except as documented in HPI and ROS
Phy Exam
<Regan Gibbons PA-C - Last Filed: 06/21/24 20:17>
Physical Exam
Physical Exam:
GEN: Well appearing, NAD, WDWN
HEENT: Oral mucosa moist, no scleral icterus
Cardiac: Regular rate
Lung: No respiratory distress, no tachypnea
Rectal: Firm stool in the rectal vault
MSK: No gross deformity or injuries
Skin: Good color, no pallor or jaundice, no rashes
Neuro: AO x3, moves all extremities freely
Psych: Calm, cooperative
Course
<Mary Carreno NP - Last Filed: 06/21/24 13:50>
Orders/Labs/Results
Orders:
Orders
06/21/24 12:57
CT Abd/Pel (IV only)-DH only Urgent
Comment:
Reason For Exam: no BM for 4 days. Rectal pain
06/21/24 13:00
Complete Blood Count/With Diff Urgent
Comprehensive Metabolic Panel Urgent
Abnormal Lab Results
06/21/24
13:00
WBC 13.7 H 10^3/uL
(4.8-10.8)
RBC 4.48 L 10^6/uL
(4.70-6.10)
Hgb 12.2 L g/dL
(13.0-18.0)
Hct 38.2 L %
(39.0-52.0)
MCHC 31.9 L g/dL
(33.0-37.0)
RDW 16.4 H %
(11.5-14.5)
MPV 12.2 H fL
(7.4-10.4)
Abs Immat Gran (auto) 0.1 H 10^3/uL
(0-0.05)
Absolute Neuts (auto) 12.1 H 10^3/uL
(1.4-6.5)
Absolute Lymphs (auto) 1.0 L 10^3/uL
(1.2-3.4)
Neutrophils % 88.4 H %
(42.2-75.2)
Lymphocytes % 7.0 L %
(20.5-51.1)
Glucose 147 H mg/dl
(70-99)
Alkaline Phosphatase 138 H U/L
(38-126)
06/21/24 13:00
06/21/24 13:00
Vital Signs
Initial and Last Documented VS:
Initial Vital Signs
Temp Pulse Resp BP Pulse Ox
98.4 F 76 18 160/105 97
06/21/24 12:53 06/21/24 12:53 06/21/24 12:53 06/21/24 12:53 06/21/24 12:53
Last Documented Vital Signs
Temp Pulse Resp BP Pulse Ox
98.4 F 76 17 158/56 99
06/21/24 12:53 06/21/24 15:54 06/21/24 15:54 06/21/24 16:00 06/21/24 16:00
<Regan Gibbons PA-C - Last Filed: 06/21/24 20:17>
Orders/Labs/Results
Orders:
Orders
06/21/24 12:57
CT Abd/Pel (IV only)-DH only Urgent
Comment:
Reason For Exam: no BM for 4 days. Rectal pain
06/21/24 13:00
Complete Blood Count/With Diff Urgent
Comprehensive Metabolic Panel Urgent
Abnormal Lab Results
06/21/24
13:00
WBC 13.7 H 10^3/uL
(4.8-10.8)
RBC 4.48 L 10^6/uL
(4.70-6.10)
Hgb 12.2 L g/dL
(13.0-18.0)
Hct 38.2 L %
(39.0-52.0)
MCHC 31.9 L g/dL
(33.0-37.0)
RDW 16.4 H %
(11.5-14.5)
MPV 12.2 H fL
(7.4-10.4)
Abs Immat Gran (auto) 0.1 H 10^3/uL
(0-0.05)
Absolute Neuts (auto) 12.1 H 10^3/uL
(1.4-6.5)
Absolute Lymphs (auto) 1.0 L 10^3/uL
(1.2-3.4)
Neutrophils % 88.4 H %
(42.2-75.2)
Lymphocytes % 7.0 L %
(20.5-51.1)
Glucose 147 H mg/dl
(70-99)
Alkaline Phosphatase 138 H U/L
(38-126)
06/21/24 13:00
06/21/24 13:00
Vital Signs
Initial and Last Documented VS:
Initial Vital Signs
Temp Pulse Resp BP Pulse Ox
98.4 F 76 18 160/105 97
06/21/24 12:53 06/21/24 12:53 06/21/24 12:53 06/21/24 12:53 06/21/24 12:53
Last Documented Vital Signs
Temp Pulse Resp BP Pulse Ox
98.4 F 76 17 158/56 99
06/21/24 12:53 06/21/24 15:54 06/21/24 15:54 06/21/24 16:00 06/21/24 16:00
<Regan Gibbons PA-C - Last Filed: 06/21/24 20:17>
MDM/Problems Addressed
MDM/Problems Addressed:
Patient disimpacted successfully at the bedside with return of copious stool thereafter. Educated on preventive bowel regimen
<Regan Gibbons PA-C - Last Filed: 06/21/24 20:17>
*Critical Care Note
Total Time (30-74mins, 75-104mins- exclusive of procedures): Not Applicable
ED Attending Note
<Mary Carreno NP - Last Filed: 06/21/24 13:50>
-
Portions of this chart may have been created with voice recognition software.� Occasional wrong word or��sound alike� substitutions may have occurred due to the inherent limitations of voice recognition software.
Discharge Plan
Departure
Patient Disposition: Home (Routine Discharge)
Date of Disposition: 06/21/24
Time of Disposition: 17:22
Patient with high blood pressure during this ER visit?: No
Discharge Problem:
Fecal impaction
Instructions: Fecal Impaction (DC)
Prescriptions:
No Action
amlodipine 5 mg Tablet
5 mg PO DAILY
therapeutic multivitamin Tablet
1 tab PO DAILY
ascorbic acid (vitamin C) [Vitamin C] 500 mg Tablet
500 mg PO DAILY
atorvastatin 80 mg Tablet
80 mg PO DAILY Qty: 30 2RF
sennosides-docusate sodium 8.6-50 mg Tablet
1 tab PO TID Qty: 20 1RF
clopidogrel 75 mg Tablet
75 mg PO DAILY Qty: 30 3RF
pantoprazole 40 mg Tablet,Delayed Release (Dr/Ec)
40 mg PO DAILY Qty: 30 3RF
aspirin 81 mg Tablet,Chewable
81 mg PO DAILY Qty: 30 2RF
metoprolol tartrate 25 mg Tablet
25 mg PO BID Qty: 60 2RF
acetaminophen 325 mg Tablet
650 mg PO Q4HPRN PRN (Reason: mild pain,headache,temp >101F ) Qty: 0 0RF
Activity Restrictions/Additional Instructions:
Daily stool softener
Miralax once daily for constipation
Interventions
Interventions:
*Risk Screen - Suicide Last Done: 06/21/24 12:53
*General Assessment Last Done: 06/21/24 17:32
*Neglect/Abuse Screening Last Done: 06/21/24 12:53
ED- Fall Risk Assessment Last Done: 06/21/24 15:54
*ED COVID-19 Vaccine History Last Done: 06/21/24 17:32
*Nursing Disposition Last Done: 06/21/24 17:32
LY-Hadobs-Atcneioohk Assessment Last Done: 06/21/24 15:54
Discharge Date and Time
Discharge Date/Time: 06/21/24 17:35
Print Language: SAMI
[2024-06-21 13:13] LABS: % Basophils 0.3 % (0-2); % Eosinophils 0.3 % (0-6); % Immature Granulocytes 0.4 % (0-0.5); % Monocytes 3.6 % (1.7-9.3); % Neutrophils 88.4 % (42.2-75.2); Absolute Immature Granulocytes 0.1 10^3/uL (0-0.05); Absolute Monocytes 0.5 10^3/uL (0.1-0.6); Absolute Neutrophils 12.1 10^3/uL (1.4-6.5); Hematocrit 38.2 % (39.0-52.0); Hemoglobin 12.2 g/dL (13.0-18.0); Mean Corp Hgb Conc. 31.9 g/dL (33.0-37.0); Mean Corpuscular Hgb 27.2 pg (27.0-31.0); Mean Corpuscular Volume 85.3 fL (80.0-94.0); Mean Platelet Volume 12.2 fL (7.4-10.4); Nucleated Red Blood Cells % 0 % (-); Platelet Count 272 10^3/uL (130-400); Red Blood Cell Count 4.48 10^6/uL (4.70-6.10); Red Cell Dist. Width 16.4 % (11.5-14.5); White Blood Cell Count 13.7 10^3/uL (4.8-10.8)
[2024-06-21 13:25] LABS: ALT (SGPT) 27 U/L (0-50); AST (SGOT) 27 U/L (17-59); Albumin 4.2 g/dl (3.5-5.0); Alkaline Phosphatase 138 U/L (38-126); Blood Urea Nitrogen 16 mg/dl (9-20); Calcium 9.4 mg/dl (8.4-10.2); Carbon Dioxide 24 mmol/L (22-30); Chloride 102 mmol/L (98-107); Glucose 147 mg/dl (70-99); Potassium 4.4 mmol/L (3.5-5.1); Sodium 139 mmol/L (135-145); Total Bilirubin 0.5 mg/dl (0.2-1.3); Total Protein 7.6 g/dl (6.3-8.2); eGFR > 60.00
[2024-06-21 15:54] VITALS: BP 159/59
[2024-06-21 16:00] VITALS: BP 158/56
== END 2024-06-21 17:35 | disposition home or self-care (01) ==
LOC: EMR 12:51
PROVIDERS: Registered Nurse; EMERGENCY PHYSICIAN Emergency Medicine; FAMILY PHYSICIAN Internal Medicine
DX: K56.41 Fecal impaction (principal)
CPT/HCPCS: 99285; 74177; 80053; 85025; Q9967

== ENCOUNTER 2024-06-23 13:52 | Outpatient (RCR) | payer MEDICARE, BC, SELFPAY | END 2024-06-23 23:59 | disposition home or self-care (01) | LOC: CRHB 13:52 | PROVIDERS: ATTENDING PHYSICIAN Orthopaedic Surgery; FAMILY PHYSICIAN Internal Medicine; REFERRING PHYSICIAN Student in an Organized Health Care Education/Training Program | DX: Z95.1 Presence of aortocoronary bypass graft (principal); I25.10 Atherosclerotic heart disease of native coronary artery without angina pectoris; I25.2 Old myocardial infarction | CPT/HCPCS: G0422; G0423 ==

== ENCOUNTER 2024-07-26 14:04 | Outpatient (RCR) | payer MEDICARE, BC, SELFPAY | END 2024-07-26 23:59 | disposition home or self-care (01) | LOC: CRHB 14:04 | PROVIDERS: ATTENDING PHYSICIAN Orthopaedic Surgery; FAMILY PHYSICIAN Internal Medicine; REFERRING PHYSICIAN Student in an Organized Health Care Education/Training Program | DX: I25.10 Atherosclerotic heart disease of native coronary artery without angina pectoris (principal); Z95.1 Presence of aortocoronary bypass graft; I25.2 Old myocardial infarction | CPT/HCPCS: G0422; G0423 ==

== ENCOUNTER 2024-08-25 13:27 | Outpatient (RCR) | payer MEDICARE, BC, SELFPAY | END 2024-08-25 23:59 | disposition home or self-care (01) | LOC: CRHB 13:27 | PROVIDERS: ATTENDING PHYSICIAN Orthopaedic Surgery; FAMILY PHYSICIAN Internal Medicine; REFERRING PHYSICIAN Student in an Organized Health Care Education/Training Program | DX: I25.10 Atherosclerotic heart disease of native coronary artery without angina pectoris (principal); Z95.1 Presence of aortocoronary bypass graft; I25.2 Old myocardial infarction | CPT/HCPCS: G0422; G0423 ==

== ENCOUNTER 2024-08-30 13:04 | Outpatient (RCR) | payer MEDICARE, BC, SELFPAY | END 2024-08-30 23:59 | disposition home or self-care (01) | LOC: CRHB 13:04 | PROVIDERS: ATTENDING PHYSICIAN Orthopaedic Surgery; FAMILY PHYSICIAN Internal Medicine; REFERRING PHYSICIAN Student in an Organized Health Care Education/Training Program | DX: I25.10 Atherosclerotic heart disease of native coronary artery without angina pectoris (principal); Z95.1 Presence of aortocoronary bypass graft; I25.2 Old myocardial infarction | CPT/HCPCS: G0422 ==

== ENCOUNTER → 2024-10-06 10:28 | Outpatient (REF) | payer MEDICARE, BC, SELFPAY ==
[2024-10-06 13:03] LABS: ALT (SGPT) 29 U/L (0-50); AST (SGOT) 27 U/L (17-59); Albumin 3.8 g/dl (3.5-5.0); Alkaline Phosphatase 82 U/L (38-126); Blood Urea Nitrogen 17 mg/dl (9-20); Carbon Dioxide 28 mmol/L (22-30); Chloride 105 mmol/L (98-107); Glucose 94 mg/dl (70-99); HDL Cholesterol 38 mg/dl; LDL Cholesterol, Calculated 47 mg/dl; Potassium 4.5 mmol/L (3.5-5.1); Sodium 139 mmol/L (135-145); Total Bilirubin 0.5 mg/dl (0.2-1.3); Total Cholesterol 102 mg/dl (50-199); Total Protein 6.8 g/dl (6.3-8.2); Triglyceride 86 mg/dl (10-149); Very Low Density Lipoprotein 17 mg/dl (0-30); eGFR > 60.00
[2024-10-06 13:12] LABS: % Basophils 0.4 % (0-2); % Immature Granulocytes 0.4 % (0-0.5); % Lymphocytes 17.1 % (20.5-51.1); % Monocytes 6.6 % (1.7-9.3); % Neutrophils 74.5 % (42.2-75.2); Absolute Eosinophils 0.1 10^3/uL (0-0.7); Absolute Lymphocytes 1.3 10^3/uL (1.2-3.4); Absolute Monocytes 0.5 10^3/uL (0.1-0.6); Absolute Neutrophils 5.7 10^3/uL (1.4-6.5); Hemoglobin 13.2 g/dL (13.0-18.0); Mean Corp Hgb Conc. 32.2 g/dL (33.0-37.0); Mean Corpuscular Hgb 28.8 pg (27.0-31.0); Mean Corpuscular Volume 89.5 fL (80.0-94.0); Nucleated Red Blood Cells % 0 % (-); Red Blood Cell Count 4.58 10^6/uL (4.70-6.10); Red Cell Dist. Width 14.7 % (11.5-14.5); White Blood Cell Count 7.7 10^3/uL (4.8-10.8)
[2024-10-06 13:24] LABS: Urine Albumin Negative (Neg - Trace); Urine Bilirubin Negative (Negative); Urine Character Clear (Clear); Urine Glucose Negative (Negative); Urine Ketone Negative (Negative); Urine Leukocyte 2+ (Negative); Urine Nitrite Negative (Negative); Urine Occult Blood Negative (Negative); Urine Urobilinogen Negative (Neg - 1+)
[2024-10-06 13:31] LABS: PSA, Total - Screen 1.72 ng/ml (0.0-4.0); TSH 1.18 uIU/ml (0.47-4.68)
[2024-10-06 13:45] LABS: Urine Color Straw
[2024-10-06 13:58] LABS: Urine Bacteria Few (Negative); Urine Squamous Cell 0-2 /LPF (Few)
[2024-10-06 13:59] LABS: Urine Red Blood Cell 0-2 /HPF (0-2)
[2024-10-06 14:44] LABS: Mean Platelet Volume 13.6 fL (7.4-10.4); Platelet Count 147 10^3/uL (130-400)
== END ==
LOC: HWLAB 10:28
PROVIDERS: ATTENDING PHYSICIAN Internal Medicine
DX: E78.2 Mixed hyperlipidemia (principal); I10 Essential (primary) hypertension; Z00.01 Encounter for general adult medical examination with abnormal findings; Z12.5 Encounter for screening for malignant neoplasm of prostate
CPT/HCPCS: 36415; 80053; 80061; 81003; 81015; 84443; 85025; G0103

== ENCOUNTER 2025-01-24 11:41 | Outpatient (RCR) | payer MEDICARE, BC, SELFPAY | END 2025-01-24 23:59 | disposition home or self-care (01) | LOC: RPT 11:41 | PROVIDERS: ATTENDING PHYSICIAN Psychiatry & Neurology Neurology; FAMILY PHYSICIAN Internal Medicine | DX: G20.C Parkinsonism, unspecified (principal); Z73.6 Limitation of activities due to disability; R26.89 Other abnormalities of gait and mobility | CPT/HCPCS: 97110; 97112; 97116; 97163; 97166; 97530; 97535 ==

== ENCOUNTER → 2025-04-01 09:22 | Outpatient (REF) | payer MEDICARE, BC, SELFPAY ==
[2025-04-01 12:14] LABS: Urine Character Clear (Clear)
[2025-04-01 12:28] LABS: ALT (SGPT) 35 U/L (0-50); AST (SGOT) 29 U/L (17-59); Albumin 4.1 g/dl (3.5-5.0); Alkaline Phosphatase 78 U/L (38-126); Blood Urea Nitrogen 20 mg/dl (9-20); Calcium 9.3 mg/dl (8.4-10.2); Carbon Dioxide 29 mmol/L (22-30); Chloride 106 mmol/L (98-107); Glucose 94 mg/dl (70-99); HDL Cholesterol 42 mg/dl; LDL Cholesterol, Calculated 50 mg/dl; Potassium 4.5 mmol/L (3.5-5.1); Sodium 140 mmol/L (135-145); Total Protein 7.0 g/dl (6.3-8.2); Very Low Density Lipoprotein 14 mg/dl (0-30); eGFR > 60.00
[2025-04-01 12:34] LABS: Hematocrit 41.6 % (39.0-52.0); Hemoglobin 13.7 g/dL (13.0-18.0); Mean Corp Hgb Conc. 32.9 g/dL (33.0-37.0); Mean Corpuscular Volume 90.8 fL (80.0-94.0); Nucleated Red Blood Cells % 0 % (-); Platelet Count 157 10^3/uL (130-400); Red Cell Dist. Width 13.1 % (11.5-14.5)
[2025-04-01 12:36] LABS: Urine Red Blood Cell 0-2 /HPF (0-2); Urine Squamous Cell 0-2 /LPF (Few); Urine White Cell 0-2 /HPF (0-5)
[2025-04-01 13:06] LABS: TSH 1.25 uIU/ml (0.47-4.68)
== END ==
LOC: HWLAB 09:22
PROVIDERS: ATTENDING PHYSICIAN Internal Medicine
DX: E78.2 Mixed hyperlipidemia (principal); I10 Essential (primary) hypertension
CPT/HCPCS: 36415; 80053; 80061; 81003; 81015; 84443; 85025